=== PATIENT | female | born 1955 | race African-American/Black ===

== ENCOUNTER 2017-02-23 11:21 | Day surgery (SDC) | payer MEDICARE, MEDICAID ==
[2017-02-20 17:21] VITALS: BMI 49.8
[2017-02-23] MEDS ORDERED: Propofol 200 MG/20 ML VIAL ONE (13:36)
[2017-02-23] MEDS ORDERED: Glycopyrrolate 0.2 MG/ML 5 ML SYRINGE ONE (13:36)
--- NOTE | 2017-02-23 17:54 | OP ---
PREPROCEDURE DIAGNOSES: 1. Morbid obesity. 2. Mild anemia, likely secondary to sickle cell trait. 3. Prior history of polyp. 4. Atrial fibrillation. 5. Chronic anticoagulation with Eliquis. POSTPROCEDURE DIAGNOSES: 1. Normal esophagogastroduodenoscopy. 2. Five polyps scattered throughout the colon from the rectum to the right colon up to 5 mm in size, removed by snare polypectomy and submitted to Pathology. 3. The cecum could be seen, but the scope could not be advanced into the cecal pole secondary to the patient's size and difficulty with respiratory status, we could not get on to her back. RECOMMENDATIONS: 1. Await histopathology. 2. Repeat colonoscopy in one year secondary to intubate the cecum. 3. Follow up in the office in 2-3 weeks. ANESTHESIA: TIVA. PROCEDURE IN DETAIL: After the patient was informed of the risks, benefits, possible complications o f endoscopy including perforation, bleeding, reactions to medication and aspiration, informed consent was obtained. The patient was brought to the endoscopy suite where she was sedated in gradual fashi on. A bite block was placed in incisural orifice. The endoscope was advanced through the esophagus, stomach and second and third portion of the duodenum and slowly removed. The esophagus, stomach, an d duodenum were all normal. Forward and retroflexed views were normal. There were no bleeding sites identified. The patient was turned in the room. A rectal examination was performed. The endoscope was advanced to the right colon, identified by the ileocecal valve and appendiceal orifice could not be visualized . The scope cannot advance fully into the cecum. Multiple maneuvers were attempted including pressu re from 2 different tacks were helping them in case. I have tried to get on to her back, but respira tory status will not permit it. Ultimately after about an hour of attempting to intubate the cecum a nd IV status as well as the decision was made to terminate the procedure, it was thought to be more r isk to her than benefit at that time. No other polyps were seen. The scope was removed slowly with good visualization of the mucosa. Retroflexed views were normal. The patient tolerated the procedur e well with no complications.
== END 2017-02-23 15:11 | disposition home or self-care (01) ==
LOC: SDC 11:21
PROVIDERS: ATTEND Internal Medicine Gastroenterology
PROC: 0DBF8ZX Excision of Right Large Intestine, Via Natural or Artificial Opening Endoscopic, Diagnostic (ICD-10-PCS; principal; 2017-02-23)
PROC: 0DBP8ZX Excision of Rectum, Via Natural or Artificial Opening Endoscopic, Diagnostic (ICD-10-PCS; 2017-02-23)
PROC: 0DJ08ZZ Inspection of Upper Intestinal Tract, Via Natural or Artificial Opening Endoscopic (ICD-10-PCS; 2017-02-23)
DX: Z12.11 Encounter for screening for malignant neoplasm of colon (principal); K21.9 Gastro-esophageal reflux disease without esophagitis; D12.6 Benign neoplasm of colon, unspecified; E66.01 Morbid (severe) obesity due to excess calories; I48.91 Unspecified atrial fibrillation; K59.00 Constipation, unspecified; D50.9 Iron deficiency anemia, unspecified; E11.9 Type 2 diabetes mellitus without complications; I10 Essential (primary) hypertension; J45.909 Unspecified asthma, uncomplicated; F41.8 Other specified anxiety disorders; E78.00 Pure hypercholesterolemia, unspecified; E89.0 Postprocedural hypothyroidism; Z68.42 Body mass index [BMI] 45.0-49.9, adult; Z79.01 Long term (current) use of anticoagulants; Z79.4 Long term (current) use of insulin; Z79.2 Long term (current) use of antibiotics; Z79.899 Other long term (current) drug therapy; Z88.1 Allergy status to other antibiotic agents; Z96.652 Presence of left artificial knee joint; Z90.710 Acquired absence of both cervix and uterus; Z98.890 Other specified postprocedural states
CPT/HCPCS: 36416; 88305

== ENCOUNTER 2017-08-25 20:07 | Observation (INO) | payer MEDICARE, MEDICAID ==
[2017-08-25 20:43] LABS: #Eosinphils 0.2 thou/uL (0.0-0.7); #Lymphocytes 1.8 thou/uL (1.20-3.40); #Monocytes 0.5 thou/uL (0.11-0.59); #Neutrophils 3.6 thou/uL (1.40-6.50); %Basophils 0.8 % (0.0-1.0); %Eosinophils 2.6 % (0.0-10.0); %Lymphocytes 29.2 % (21.0-51.0); %Monocytes 7.8 % (0.0-10.0); %Neutrophils 59.6 % (42.0-75.0); Hemoglobin 11.2 g/dL (12.0-16.0); Mean Corpuscular HGB CONC 35.1 g/dL (32.0-36.0); Mean Corpuscular Hemoglobin 29.5 pg (27.0-31.0); Mean Platelet Volume 7.3 fL (7.4-10.4); Platelet Count 204 thou/uL (130-400); RBC Distribution Width 11.9 % (11.5-14.5)
[2017-08-25 21:06] LABS: ALT (SGPT) 34 U/L (8-55); AST (SGOT) 34 U/L (5-34); Albumin 4.1 g/dL (3.5-5.0); Alkaline Phosphatase 131 U/L (40-150); Anion Gap 16 mmol/L (10-20); BUN (Urea Nitrogen) 18 mg/dL (9.8-20.1); Bilirubin, Total 0.3 mg/dL (0.2-1.2); CK (CPK) 259 U/L (29-168); Calc. Creatinine Clearance 0 mL/min (70-130); Calcium 9.4 mg/dL (7.8-10.44); Carbon Dioxide 22 mmol/L (22-29); Chloride 104 mmol/L (98-107); Estimated GFR-MDRD 38; Globulin 3.1 g/dL (2.4-3.5); Glucose 288 mg/dL (70-105); Potassium 4.1 mmol/L (3.5-5.1); Protein, Total 7.2 g/dL (6.0-8.3); Sodium 138 mmol/L (136-145)
--- NOTE | 2017-08-25 21:09 | RAD ---
PORTABLE AP CHEST X-RAY 08/25/17 HISTORY: Chest pain. COMPARISON: 06/05/16. FINDINGS: The cardiac silhouette is magnified by projection and is at the upper limits of normal to borderline enlarged. The pulmonary vasculature is within normal limits. The lungs are clear. Degenerative change s are again seen in the spine. There has been no interval change compared to the prior exam. IMPRESSION: Stable chest without evidence of an acute cardiopulmonary process. POS: COLT
[2017-08-25 21:13] LABS: CKMB 1.7 ng/mL (0-6.6); Troponin I 0.014 ng/mL (< 0.028)
[2017-08-25] MEDS ORDERED: Acetaminophen 500 MG TAB ONE (21:26)
[2017-08-25 22:19] LABS: Bilirubin Negative (Negative); Blood, Urine Negative (Negative); Clarity CLEAR (Clear); Glucose, Urine (Dipstick) 500 mg/dL (Negative); Leukocyte Negative (Negative); Nitrite Negative (Negative); Protein, Urine (Dipstick) 100 mg/dL (Neg-Trace)
[2017-08-25 22:22] LABS: Bacteria/HPF None Seen HPF (None Seen); Hyaline Casts/LPF 0-3 HYALINE CAST LPF (0-3 Hyaline); Pathc Cast-AUWi Flag 0.58 (0-2.49); RBC/HPF 0-3 HPF (0-3); Squamous Epithelial 0-3 HPF (0-3); WBC/HPF 0-3 HPF (0-3)
[2017-08-25] MEDS ORDERED: Aspirin 325 MG TAB ONE (23:09)
[2017-08-26 00:52] LABS: Lactic Acid 2.4 mmol/L (0.5-2.2)
[2017-08-26 01:00] LABS: Troponin I 0.023 ng/mL (< 0.028)
[2017-08-26] MEDS ORDERED: Sodium Chloride 0.9% 1,000 ML IV SCH (01:17)
[2017-08-26 01:28] VITALS: BMI 51.2
[2017-08-26 02:49] LABS: Troponin I 0.027 ng/mL (< 0.028)
[2017-08-26] MEDS ORDERED: Loperamide HCl 2 MG CAP PO PRN (07:16)
[2017-08-26] MEDS ORDERED: Ondansetron HCl/PF 4 MG/2 ML Vial IVP PRN (07:16)
[2017-08-26] MEDS ORDERED: HYDROcodone/Acetaminophen 5/325 mg Tablet PO PRN (07:16)
[2017-08-26] MEDS ORDERED: Chloraseptic Spray 180 ml Bottle PO PRN (07:16)
[2017-08-26] MEDS ORDERED: traMADol HCl 50 MG TAB PO PRN (07:16)
[2017-08-26] MEDS ORDERED: Loratadine 10 MG TAB PO PRN (07:16)
[2017-08-26] MEDS ORDERED: Eucerin (Mineral Oil/Petrolatum,White) 30 gm Jar TOP PRN (07:16)
[2017-08-26] MEDS ORDERED: Dextrose 5% in Water 1,000 ML IV PRN (07:16)
[2017-08-26] MEDS ORDERED: Senokot 8.6 MG TAB PO PRN (07:16)
[2017-08-26] MEDS ORDERED: Dextrose 50% Abboject 50 ML SYRINGE SLOW IVP PRN (07:16)
[2017-08-26] MEDS ORDERED: Milk Of Magnesia 30 ML UDCUP PO PRN (07:16)
[2017-08-26] MEDS ORDERED: Artificial Tears 18 DROP/0.9 ML EA EYE PRN (07:16)
[2017-08-26] MEDS ORDERED: Ondansetron ODT 4 MG TAB PO PRN (07:16)
[2017-08-26] MEDS ORDERED: Mag-Al 1200 mg/1200 mg/30 ML UDCUP PO PRN (07:16)
[2017-08-26] MEDS ORDERED: Polyethylene Glycol 3350 17 GM Packet PO PRN (07:16)
[2017-08-26] MEDS ORDERED: Diabetic Tussin 200 MG/10 ML UDCUP PO PRN (07:16)
[2017-08-26] MEDS ORDERED: Acetaminophen 325 MG TAB PO PRN (07:16)
[2017-08-26] MEDS ORDERED: HumaLOG 300 UNITS/3 ML VIAL SC PRN (07:16)
[2017-08-26] MEDS ORDERED: Nitroglycerin 0.4 MG TAB (25 Tab Bottle) SL PRN (07:16)
[2017-08-26] MEDS ORDERED: Sodium Chloride 0.65% Nasal 44 ML BOT EA NARE PRN (07:16)
[2017-08-26] MEDS ORDERED: Zolpidem Tartrate 5 MG TAB PO PRN (07:16)
[2017-08-26] MEDS ORDERED: hydrALAZINE 20 MG/ML VIAL SLOW IVP PRN (07:16)
--- NOTE | 2017-08-26 08:35 | SS ---
PRIMARY CARE PHYSICIAN: Dr. Teja Shelton at [facility]. REASON FOR ADMISSION: Chest pain. HISTORY OF PRESENT ILLNESS: This is a 62-year-old -[place] female who has multiple medical p roblems including diabetes type 2, hypertension, dyslipidemia, hypothyroidism, dementia, glaucoma who came to emergency room for evaluation of chest pain. Patient reports that chest pain started yester day sometime, she was not sure about what time, but it was left-sided in location, associated with na usea. She denies any vomiting. She denies any relation of chest pain with food, respiration or acti vity. She describes pain, dull aching in nature, 5/10 in intensity. She denies any radiation of gaetano n. She denies any associated palpitations, shortness of breath, orthopnea, PND or leg swelling. She denies any calf tenderness. She denies any pleurisy. She denies any fever, chills, cough or recent upper respiratory infection. In the emergency room, the patient was evaluated and she was given aspirin 325 mg. She has baseline chronic kidney disease stage 3. She was given 1 liter IV fluids and Tylenol 1 gram. She had lactic acidosis, but she denies any fevers. She denies any UTI symptoms. She denies any constipation, diar val, melena or hematochezia. Her EKG was unremarkable. Her chest x-ray was unremarkable. In the e mergency room, she also had a CT of the abdomen and pelvis which was also unremarkable. She denies a ny right upper quadrant pain. She denies any suprapubic pain. Patient was admitted to telemetry floor for observation after midnight for rule out ACS. 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 PAST SURGICAL HISTORY: Hysterectomy, , thyroidectomy. PAST PSYCHIATRIC HISTORY: Anxiety and depression. SOCIAL HISTORY: Patient lives at [facility]. No history of tobacco, a lcohol or illicit drug abuse. FAMILY HISTORY: Positive for diabetes, hypertension among several family members. REVIEW OF SYSTEMS: The following complete review of systems was negative, unless otherwise mentioned in the HPI or below: Constitutional: Weight loss or gain, ability to conduct usual activities. Sk in: Rash, itching. Eyes: Double vision, pain. ENT/Mouth: Nose bleeding, neck stiffness, pain, te nderness. Cardiovascular: Palpitations, dyspnea on exertion, orthopnea. Respiratory: Shortness of breath, wheezing, cough, hemoptysis, fever or night sweats. Gastrointestinal: Poor appetite, abdom inal pain, heartburn, nausea, vomiting, constipation, or diarrhea. Genitourinary: Urgency, frequenc y, dysuria, nocturia. Musculoskeletal: Pain, swelling. Neurologic/Psychiatric: Anxiety, depressio n. Allergy/Immunologic: Skin rash, bleeding tendency. Please see my HPI for pertinent positive and negative. All other review of systems reviewed and negative except as mentioned in the HPI. ALLERGIES: KEFLEX. CURRENT HOME MEDICATIONS: Synthroid 175 mcg p.o. daily, Levemir 30 units subQ at bedtime, Humalog 20 units before meals, amlodipine 5 mg p.o. daily, Aricept 10 mg p.o. daily, Lipitor 40 mg p.o. at bedt lv, Eliquis 5 mg twice daily, MiraLax 17 grams p.o. daily, Xalatan eye drop at bedtime, glimepiride 4 mg p.o. b.i.d., Combigan ophthalmic drop b.i.d., omeprazole 20 mg p.o. daily, Cymbalta 60 mg p.o. d aily, Linzess 1 capsule daily, Seroquel 100 mg twice daily, losartan 100 mg p.o. daily. EMERGENCY ROOM COURSE: Patient is given aspirin, IV fluid and Tylenol. PHYSICAL EXAMINATION: VITAL SIGNS: On arrival, blood pressure 169/90, pulse 78, respiratory rate 18. temperature 98.6, saturation 96% on room air, weight 148 kilograms. GENERAL: Patient is currently alert, awake, arousable, follows command, in no obvious acute distress . She is presently demented. HEAD: Normocephalic, atraumatic. EYES: Pupils round, reactive to light. Extraocular muscles are intact. No nystagmus. ENT: Oropharynx within normal limits. Moist mucous membranes, no oral lesion, no pharyngeal erythem a, no exudate. NECK: Supple, no JVD, no thyromegaly, no carotid bruit. No jugular venous distention. LUNGS: Clear to auscultation without any rhonchi or rales. CARDIAC: S1, S2 regular. No murmur, no gallop, no rub. ABDOMEN: Soft, bowel sounds present, nontender, nondistended. No organomegaly, no mass, no epigastr ic tenderness, no right upper quadrant tenderness, no suprapubic tenderness, no peritoneal sign. BENIGN EXAMINATION: Lungs, clear to auscultation without any rhonchi or rales. Chest wall: Patient does have mild reproducible pain on the left side of the anterior chest nearby sternum. EXTREMITIES: Upper extremity, passive movement of all joints is normal. Lower extremity, passive mo vement of all joints is normal. No calf tenderness, no edema. Good distal pulsation. SKIN: No skin rash. HEMATOLOGIC: No lymphadenopathy. PSYCHIATRIC: Normal affect. NEUROLOGIC: Grossly nonfocal examination. She is moving all 4 limbs. Plantar bilateral flexor. SIGNIFICANT LABORATORY DATA: EKG showing normal sinus rhythm without any acute ischemic changes. Ch est x-ray based on my review, no acute cardiopulmonary process. CT of the abdomen and pelvis showing low attenuation in the left lobe of liver, otherwise unremarkable. CBC: WBC 6.0, hemoglobin 11.2, platelets 204. BMP: Sodium 138, potassium 4.1, chloride 104, carbon dioxide 22, anion gap 16, BUN 1 8, creatinine 1.67, glucose 288. Lactic acid 2.7, calcium 9.4. LFT: AST 34, ALT 34, alkaline phosp hatase is 131, albumin 4.1. Cardiac enzymes negative x2. BNP 10.5. Urinalysis normal. ASSESSMENT AND PLAN: 1. Chest pain. Patient's chest pain description is atypical. I am suspecting musculoskeletal pain given reproducibility, but she has several risk factors for coronary artery disease and she has mild to moderate pretest probability of coronary artery disease. Her EKG is normal. Her chest x-ray is n ormal. Cardiac enzymes are also negative. She never had a cardiac workup in the past. At this poin t, patient will need further evaluation with pharmacological stress test. If that is negative, then we will consider [facility] her [facility] later on today. We will check lipid profile fo r risk stratification. We will keep her n.p.o. for stress test. 2. Hypertension. Continue amlodipine 5 mg p.o. daily, losartan 100 mg p.o. daily. 3. Chronic anticoagulation. Continue Eliquis 5 mg p.o. b.i.d. for paroxysmal atrial fibrillation. Currently, she is in sinus rhythm. 4. Diabetes type 2. Continue patient's home dose of Levemir insulin subQ b.i.d., glimepiride 4 mg p .o. b.i.d. and Humalog insulin as per sliding scale. We will hold insulin therapy if patient is n.p. o. for stress test for now. 5. Hypothyroidism. We will continue Synthroid 175 mcg p.o. daily. 6. Glaucoma. We will continue Xalatan eyedrops, Combigan eyedrops as per home dosage. 7. Gastroesophageal reflux disease. Continue Protonix 40 mg p.o. daily. 8. Anxiety and depression. Continue Seroquel 100 mg p.o. b.i.d., Cymbalta 30 mg p.o. daily. 9. Gastroesophageal reflux disease. Continue Protonix 40 mg p.o. daily. 10. Morbid obesity. Diet education given, weight loss education given. Healthy lifestyle measures discussed with the patient. 11. Dyslipidemia. Continue Lipitor 40 mg p.o. at bedtime. 12. Senile dementia. Continue Aricept 20 mg p.o. at bedtime. 13. Chronic kidney disease stage 3. We will monitor renal function and avoid nephrotoxin agent. 14. Deep venous thrombosis prophylaxis not needed because the patient is already on chronic anticoag ulation therapy. 15. Gastrointestinal prophylaxis, Protonix 40 mg p.o. daily. CODE STATUS: Patient is FULL CODE. Patient does not have any surrogate decision maker. Disposition plan based on stress test result. DATE OF ADMISSION: 08/26/2017 DATE OF DISCHARGE: Expecting 08/26/2017 DISCHARGE DISPOSITION: [facility]. PRIMARY DISCHARGE DIAGNOSIS: Chest pain, ruled out acute coronary syndrome. SECONDARY DISCHARGE DIAGNOSES: Morbid obesity with BMI of 51, diabetes type 2, hypertension, dyslipi demia, gastroesophageal reflux disease, chronic kidney disease stage 3, glaucoma, osteoarthritis, anx iety, and depression, senile dementia, chronic anticoagulation, paroxysmal atrial fibrillation, physi leny deconditioning. PRIMARY PROCEDURES/OPERATIONS: None. RADIOLOGICAL INVESTIGATION: Chest x-ray normal. CT of the abdomen and pelvis unremarkable. SIGNIFICANT LABORATORY DATA: Please see my HPI above. DISCHARGE MEDICATIONS: Please see current home medications as per above. Patient will continue all her previous home medications. No new medication added. DISCHARGE PLAN: Patient will be discharged back to [facility]. ALLERGIES: KEFLEX. HOSPITAL COURSE: [facility] was [facility] from [facility] for [facility]. Her chest pain description is s uspected for musculoskeletal. We are trying to do stress test pharmacological for rule out ACS. If stress is negative, then the patient is expected to be discharged later on today. I am not sure whet her this stress test will be done in 2 days protocol or a single day, but if result is reported as ne gative, then we will consider discharging her back to [facility] later on today.
[2017-08-26 08:39] LABS: Cardiac Risk 3.1 (Less than 4.5)
[2017-08-26] MEDS: Timolol 0.5% Ophth Soln 5 ml Bottle EA EYE SCH ×2 (09:58→20:52)
[2017-08-26] MEDS: Brimonidine Tartrate 0.2% Ophth Soln 5 ml Bottle EA EYE SCH ×2 (09:59→20:52)
[2017-08-26] MEDS: Multivit, Therapeutic 1 TAB PO SCH (10:35)
[2017-08-26] MEDS: Apixaban 5 MG TAB PO SCH ×2 (12:05→20:54)
[2017-08-26] MEDS: Amlodipine 5 MG TAB PO SCH (12:05)
[2017-08-26] MEDS: Glimepiride 4 MG TAB PO SCH ×2 (12:06→20:54)
[2017-08-26] MEDS: DULoxetine 30 MG CAP PO SCH (12:06)
[2017-08-26] MEDS: Losartan 25 MG TAB PO SCH (12:09)
[2017-08-26] MEDS ORDERED: Regadenoson 0.4 MG/5 ML SYRINGE ONE (13:04)
[2017-08-26] MEDS: Insulin Glargine 75 UNITS in Pre-Filled Syringe 1 EACH SC SCH (15:49)
[2017-08-26] MEDS: HumaLOG 300 UNITS/3 ML VIAL SC PRN (15:50)
[2017-08-26] MEDS ORDERED: INSULIN DETEMIR SC SCH (16:30)
[2017-08-26] MEDS ORDERED: Latanoprost 0.005% Ophth Soln 2.5 ml Bottle EA EYE SCH (21:00)
[2017-08-26] MEDS ORDERED: Donepezil HCl 10 MG TAB PO SCH (21:00)
[2017-08-26] MEDS ORDERED: Atorvastatin Calcium 20 MG TAB PO SCH (21:00)
[2017-08-27 04:54] LABS: Hemoglobin 10.6 g/dL (12.0-16.0); Platelet Count 203 thou/uL (130-400)
[2017-08-27] MEDS: Insulin Glargine 75 UNITS in Pre-Filled Syringe 1 EACH SC SCH (05:32)
[2017-08-27] MEDS ORDERED: Levothyroxine 175 MCG TAB PO SCH (06:00)
[2017-08-27] MEDS: Brimonidine Tartrate 0.2% Ophth Soln 5 ml Bottle EA EYE SCH (08:08)
[2017-08-27] MEDS: Timolol 0.5% Ophth Soln 5 ml Bottle EA EYE SCH (08:09)
[2017-08-27] MEDS: Losartan 25 MG TAB PO SCH (08:10)
[2017-08-27] MEDS: Apixaban 5 MG TAB PO SCH (08:11)
[2017-08-27] MEDS: DULoxetine 30 MG CAP PO SCH (08:11)
[2017-08-27] MEDS: Multivit, Therapeutic 1 TAB PO SCH (08:11)
[2017-08-27] MEDS: Glimepiride 4 MG TAB PO SCH (08:11)
[2017-08-27] MEDS: Amlodipine 5 MG TAB PO SCH (08:11)
[2017-08-27] MEDS ORDERED: Prevnar 13-Val Conj/PF 0.5 ML SYRINGE IM ONE (09:00)
[2017-08-27] MEDS: HumaLOG 300 UNITS/3 ML VIAL SC PRN (10:49)
--- NOTE | 2017-08-27 11:26 | PDOC.PN ---
- Subjective Encounter Start Date: 08/27/17 Encounter Start Time: 07:00 -: old records requested/rev Patient seen and examined. No new complaints. No overnight events - Objective Resuscitation Status: Resuscitation Status FULL:Full Resuscitation MAR Reviewed: Yes Vital Signs & Weight: Vital Signs (12 hours) Temp Pulse Resp BP BP Pulse Ox 08/27/17 11:18 98.0 F 76 16 125/64 92 L 08/27/17 08:11 78 08/27/17 08:09 78 08/27/17 07:41 98.5 F 78 18 08/27/17 07:31 98.5 F 97 24 H 142/70 H 94 L 08/27/17 04:16 98.5 F 78 18 126/72 92 L Weight Weight 307 lb 5.19 oz I&O: 08/26/17 08/27/17 08/28/17 06:59 06:59 06:59 Intake Total 556 1210 Balance 556 1210 Result Diagrams: 08/27/17 04:08 08/27/17 04:08 Additional Labs: Accuchecks 08/27/17 08/27/17 08/26/17 10:47 05:32 20:54 POC Glucose 439 H 366 H 327 H 08/26/17 15:50 POC Glucose 405 H Radiology Reviewed by me: Yes (stress test normal) EKG Reviewed by me: Yes (nsr) Phys Exam - Physical Examination Constitutional: NAD HEENT: PERRLA, moist MMs, sclera anicteric Neck: no JVD, supple Respiratory: no wheezing, no rales, no rhonchi Cardiovascular: RRR, no significant murmur, no rub Gastrointestinal: soft, non-tender, no distention, positive bowel sounds Musculoskeletal: no edema, pulses present Neurological: non-focal, normal sensation, moves all 4 limbs Lymphatic: no nodes Psychiatric: normal affect Skin: no rash, normal turgor Dx/Plan (1) Chest pain Code(s): R07.9 - CHEST PAIN, UNSPECIFIED Status: Acute (2) Lactic acidosis Code(s): E87.2 - ACIDOSIS Status: Acute (3) Anxiety and depression Code(s): F41.9 - ANXIETY DISORDER, UNSPECIFIED; F32.9 - MAJOR DEPRESSIVE DISORDER, SINGLE EPISODE, UNSPECIFIED Status: Chronic (4) CKD (chronic kidney disease) stage 3, GFR 30-59 ml/min Code(s): N18.3 - CHRONIC KIDNEY DISEASE, STAGE 3 (MODERATE) Status: Chronic (5) Chronic anticoagulation Code(s): Z79.01 - 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 ANTICOAGULANTS Status: Chronic (6) Diabetes type 2, controlled Code(s): E11.9 - TYPE 2 DIABETES MELLITUS WITHOUT COMPLICATIONS Status: Chronic (7) Dyslipidemia Code(s): E78.5 - HYPERLIPIDEMIA, UNSPECIFIED Status: Chronic (8) GERD (gastroesophageal reflux disease) Code(s): K21.9 - GASTRO-ESOPHAGEAL REFLUX DISEASE WITHOUT ESOPHAGITIS Status: Chronic (9) Glaucoma Code(s): H40.9 - UNSPECIFIED GLAUCOMA Status: Chronic (10) Hypertension Code(s): I10 - ESSENTIAL (PRIMARY) HYPERTENSION Status: Chronic (11) Morbid obesity with BMI of 50.0-59.9, adult Code(s): E66.01 - MORBID (SEVERE) OBESITY DUE TO EXCESS CALORIES; Z68.43 - BODY MASS INDEX (BMI) 50-59.9 , ADULT Status: Chronic - Plan cont current plan of care * medication reviewed as below * symptomatic treatment * stable for discharge * discharge medication reconciliation done * discharge instruction given * stress test negative * paper work done for discharge. Review of Systems - Review of Systems Other: not reliable due to her level of cognitive status - Medications/Allergies Allergies/Adverse Reactions: Allergies Allergy/AdvReac Type Severity Reaction Status Date / Time cephalexin monohydrate Allergy Verified 02/20/17 17:07 [From [facility]] Medications: Current Medications Acetaminophen (Tylenol) 650 mg PO Q4H PRN PRN Reason: Headache/Fever or Pain Last Admin: 08/26/17 08:26 Dose: 650 mg Hydrocodone Bitart/Acetaminophen ([place] 5/325) 1 tab PO Q4H PRN PRN Reason: Moderate Pain (4-6) Last Admin: 08/26/17 16:08 Dose: 1 tab Al Hydroxide/Mg Hydroxide (Maalox) 30 ml PO Q6H PRN PRN Reason: Heartburn or Indigestion Amlodipine Besylate (Norvasc) 5 mg PO DAILY [facility] Last Admin: 08/27/17 08:11 Dose: 5 mg Apixaban (Eliquis) 5 mg PO BID [facility] Last Admin: 08/27/17 08:11 Dose: 5 mg Artificial Tears (Tears Naturale) 0 drop EA EYE PRN PRN PRN Reason: Dry Eyes Atorvastatin Calcium (Lipitor) 40 mg PO [facility] Last Admin: 08/26/17 20:54 Dose: 40 mg Brimonidine Tartrate (Alphagan 0.2% Ophth Soln) 1 drop EA EYE BID [facility] Last Admin: 08/27/17 08:08 Dose: 1 drop Dextrose/Water (Dextrose 50%) 25 gm SLOW IVP PRN PRN PRN Reason: Hypoglycemia Donepezil HCl (Aricept) 20 mg PO [facility] Last Admin: 08/26/17 20:54 Dose: 20 mg Duloxetine HCl (Cymbalta) 60 mg PO DAILY [facility] Last Admin: 08/27/17 08:11 Dose: 60 mg Glimepiride (Amaryl) 4 mg PO BID [facility] Last Admin: 08/27/17 08:11 Dose: 4 mg Glucagon (Glucagon) 1 mg IM PRN PRN PRN Reason: Hypoglycemia Guaifenesin (Robitussin Sf) 200 mg PO Q4H PRN PRN Reason: Cough Hydralazine HCl (Apresoline) 10 mg SLOW IVP Q4H PRN PRN Reason: Systolic BP > 180 Dextrose/Water (D5w) 1,000 mls @ 0 mls/hr IV .Q0M PRN; As Directed PRN Reason: Hypoglycemia Insulin Glargine 75 units/ (Miscellaneous Medication) 0.75 mls @ 0 mls/hr SC 0630,1630 [facility] PRN Reason: As Directed Last Admin: 08/27/17 05:32 Dose: 0.75 mls Insulin Human Lispro (Humalog) 0 units SC .MODERATE SLIDING SC PRN PRN Reason: Moderate Correctional Scale Last Admin: 08/27/17 10:49 Dose: 10 unit Insulin Human Lispro (Humalog) 0 units SC .BEDTIME SLIDING SC PRN PRN Reason: Bedtime Correctional Scale Last Admin: 08/26/17 20:59 Dose: 4 unit Lactulose (Lactulose) 10 gm PO BID [facility] Last Admin: 08/27/17 08:07 Dose: 10 gm Latanoprost (Xalatan 0.005% Ophth Soln) 1 drop EA EYE [facility] Last Admin: 08/26/17 20:47 Dose: 1 drop Levothyroxine Sodium (Synthroid) 175 mcg PO 0600 [facility] Last Admin: 08/27/17 05:28 Dose: 175 mcg Loperamide HCl (Imodium) 2 mg PO PRN PRN PRN Reason: Diarrhea/Loose Stools Loratadine (Claritin) 10 mg PO DAILYPRN PRN PRN Reason: Sinus Symptoms Losartan Potassium (Cozaar) 100 mg PO DAILY [facility] Last Admin: 08/27/17 08:10 Dose: 100 mg Magnesium Hydroxide (Milk Of Magnesium) 30 ml PO DAILYPRN PRN PRN Reason: Constipation Mineral Oil/White Petrolatum (Eucerin Cream) 0 gm TOP BIDPRN PRN PRN Reason: Dry Skin Multivitamins (Theragran) 1 tab PO DAILY [facility] Last Admin: 08/27/17 08:11 Dose: 1 tab Nitroglycerin (Nitrostat) 0.4 mg SL Q5MIN PRN PRN Reason: Chest Pain Ondansetron HCl (Zofran Odt) 4 mg PO Q6H PRN PRN Reason: Nausea/Vomiting Last Admin: 08/26/17 09:58 Dose: 4 mg Ondansetron HCl (Zofran) 4 mg IVP Q6H PRN PRN Reason: Nausea/Vomiting Pantoprazole Sodium (Protonix) 40 mg PO DAILY [facility] Last Admin: 08/27/17 08:11 Dose: 40 mg Phenol (Chloraseptic [place] 180 Ml Bot) 0 ml PO PRN PRN PRN Reason: Sore Throat Polyethylene Glycol (Miralax) 17 gm PO DAILY PRN PRN Reason: Constipation Quetiapine Fumarate (Seroquel) 100 mg PO BID [facility] Last Admin: 08/27/17 08:10 Dose: 100 mg Senna (Senokot) 2 tab PO HSPRN PRN PRN Reason: Constipation Sodium Chloride ([place] Nasal [place] 0.65%) 0 ml EA NARE QIDPRN PRN PRN Reason: Nasal Congestion Timolol Maleate (Timoptic 0.5% Ophth Soln) 1 drop EA EYE BID [facility] Last Admin: 08/27/17 08:09 Dose: 1 drop Tramadol HCl (Ultram) 50 mg PO Q8HR PRN PRN Reason: Pain Last Admin: 08/26/17 09:57 Dose: 50 mg Zolpidem Tartrate (Ambien) 5 mg PO HSPRN PRN PRN Reason: Insomnia
--- NOTE | 2017-08-27 11:40 | DIS ---
DATE OF ADMISSION: 08/26/2017 DATE OF DISCHARGE: 08/27/2017 DISCHARGE DISPOSITION: [facility]. PRIMARY DISCHARGE DIAGNOSIS: Chest pain, ruled out acute coronary syndrome. SECONDARY DISCHARGE DIAGNOSES: Hypertension, chronic anticoagulation with Eliquis, diabetes type 2, hypothyroidism, glaucoma, gastroesophageal reflux disease, anxiety and depression, gastroesophageal r eflux disease, morbid obesity, dyslipidemia, senile dementia, chronic kidney disease stage 3. PRIMARY PROCEDURE/OPERATION: None. RADIOLOGICAL INVESTIGATION: Stress test was normal. A chest x-ray was normal. SIGNIFICANT LABORATORY DATA: Hemoglobin 10.6, creatinine 1.82, LDL 49. Urinalysis normal. DISCHARGE MEDICATIONS: The patient will continue all her previous medication including Tylenol 650 m g q.6 hours p.r.n., amlodipine 5 mg p.o. daily, Eliquis 5 mg p.o. b.i.d., Lipitor 40 mg p.o. at bedti me, Combigan ophthalmic drops each eye q.12 hourly, Aricept 10 mg p.o. at bedtime, Cymbalta 60 mg p.o . daily, Amaryl 4 mg p.o. b.i.d., Humalog 25 units subcu a.c., Levemir 75 units subcu b.i.d. Lispro as per sliding scale, lactulose 15 mL b.i.d., Xalatan eye drop at bedtime, Synthroid 175 mcg daily, C ozaar 100 mg daily, multivitamin 1 tablet p.o. daily, omeprazole 20 mg p.o. daily, MiraLax 17 grams p .o. daily, Seroquel 100 mg p.o. b.i.d., tramadol 50 mg q.8 hourly p.r.n. CONTRAINDICATIONS: None. CODE STATUS: FULL CODE. INPATIENT CONSULTANTS: None. ALLERGIES: KEFLEX. DISCHARGE PLAN: Post hospital, the patient is discharged back to skilled nursing. HOSPITAL COURSE: The patient was sent from skilled nursing for chest pain. Her chest pain description was most likely related with musculoskeletal etiology. Because of her several risk factors for coron roxana artery disease and she never had any workup for her heart, that is why we did a pharmacological s tress test to rule out underlying ischemia. Her pharmacological stress test was normal. The patient did not have any abnormality on telemetry floor. Her blood sugar was high because she did not get h er regular insulin as prescribed at skilled nursing. We are restarting back on her regular dose of insu raudel therapy. She was continued with her home medication while in hospital as well as upon discharge. The patient is seen and examined at bedside today. Please see my progress note from today for furt her detail. The patient is medically stable for discharge today.
--- NOTE | 2017-08-27 12:10 | NM ---
MYOCARDIAL PERFUSION EVALUATION: DATE: 08/27/17 INDICATION: History of chest pain, stroke, COPD, atrial fibrillation, hypertension, diabetes mellitus, and dyslip idemia. RADIOPHARMACEUTICAL: 27.1 mCi technetium-99m sestamibi IV was utilized with stress and 27.2 mCi technetium-99m sestamibi I V was utilized with rest. PHYSIOLOGIC DATA: The patient achieved 73% of maximal age-predicted heart rate utilizing the Lexiscan stress test morales col. Please see the stress test report for further details concerning physiologic data. FINDINGS: There is a prominent amount of activity underlying the left inferior heart border likely related to b ackground activity in the liver and colon. This is seen on both the rest and stress images and slight ly limits the imaged detail and analysis. However, no definite reversible myocardial perfusion defect is evident. There was normal wall motion and thickening. Estimated LVEF is 73%. IMPRESSION: 1. No definite scintigraphic evidence of reversible myocardial ischemia. 2. Mild background activity adjacent to the inferior wall of the left ventricle likely related to ba ckground uptake within the liver and portions of the colon. 3. Normal wall motion and thickening with an estimated LVEF of 73%. POS: [facility]
[2017-08-27] MEDS ORDERED: HumaLOG 300 UNITS/3 ML VIAL SC SCH (15:15)
[2017-08-27 16:33] VITALS: BP 123/75; TEMP 98.4
== END 2017-08-27 16:59 ==
LOC: ERS 20:07 → 2SW 08-26 01:08
PROVIDERS: ADMIT Hospitalist; ATTEND Hospitalist
DX: R07.9 Chest pain, unspecified (principal); E03.9 Hypothyroidism, unspecified; H40.9 Unspecified glaucoma; K21.9 Gastro-esophageal reflux disease without esophagitis; F41.8 Other specified anxiety disorders; E66.01 Morbid (severe) obesity due to excess calories; F03.90 Unspecified dementia, unspecified severity, without behavioral disturbance, psychotic disturbance, mood disturbance, and anxiety; E11.22 Type 2 diabetes mellitus with diabetic chronic kidney disease; I12.9 Hypertensive chronic kidney disease with stage 1 through stage 4 chronic kidney disease, or unspecified chronic kidney disease; N18.3 Chronic kidney disease, stage 3 (moderate); Z68.43 Body mass index [BMI] 50.0-59.9, adult; Z79.01 Long term (current) use of anticoagulants; Z79.4 Long term (current) use of insulin; Z79.899 Other long term (current) drug therapy; Z88.8 Allergy status to other drugs, medicaments and biological substances
CPT/HCPCS: 51701; 71045; 78452; 80053; 80061; 82550; 82553; 82565; 82962 ×2; 83605 ×2; 83880; 84484 ×3; 85014; 85018; 85025; 85049; 93005; 93017; 99285; A9500; G0378; 36415; 36416; 81003; 81015; 96360; 96361; A4353; J2785; Q0162

== ENCOUNTER 2018-06-23 20:50 | Emergency (ER) | payer MEDICARE, OTHER ==
--- NOTE | 2018-06-23 21:27 | RAD ---
2 views right hip: 06/23/2018 COMPARISON: None HISTORY: Pain FINDINGS: There is mild superior joint space narrowing and mild lateral osteophyte formation involvin g the right hip with no acute fracture or evidence of dislocation. IMPRESSION: No acute osseous abnormality.
[2018-06-23] MEDS ORDERED: Ketorolac Tromethamine 30 MG/ML VIAL ONE (21:35)
--- NOTE | 2018-06-23 22:14 | CT ---
CT of the pelvis: 06/23/2018 COMPARISON: None HISTORY: Pain TECHNIQUE: Axial CT imaging at 3.75 mm intervals through the pelvis with coronal and sagittal reforma tted imaging FINDINGS: The uterus appears surgically absent. Limited visualization of the abdominal contents appea rs unremarkable. There is mild fat stranding and skin thickening involving the inferior aspect of the pannus on the right, which may signify cellulitis. There is a prominent incompletely imaged ventr al hernia. There is prominent bilateral facet hypertrophy at L4-5 and L5-S1 with associated bilateral neural for aminal stenosis. There is mild degenerative change involving bilateral sacroiliac joints. There is no widening of the sacroiliac joints or the pubic symphysis. No evidence for fracture of the inferior pubic ramus or the superior pubic ramus noted on either side. No displaced fracture is seen involving the proximal f emur on either side. No evidence for hip dislocation. IMPRESSION: Chronic-appearing findings as detailed above. No acute fracture is noted. Follow-up MRI a dvised if symptoms persist.
== END 2018-06-24 00:21 ==
LOC: ERS 20:50
DX: L03.115 Cellulitis of right lower limb (principal); D64.9 Anemia, unspecified; F03.90 Unspecified dementia, unspecified severity, without behavioral disturbance, psychotic disturbance, mood disturbance, and anxiety; I48.91 Unspecified atrial fibrillation; J44.9 Chronic obstructive pulmonary disease, unspecified; M19.90 Unspecified osteoarthritis, unspecified site; F41.9 Anxiety disorder, unspecified; I12.9 Hypertensive chronic kidney disease with stage 1 through stage 4 chronic kidney disease, or unspecified chronic kidney disease; N18.9 Chronic kidney disease, unspecified; D63.1 Anemia in chronic kidney disease; Z79.4 Long term (current) use of insulin; Z79.1 Long term (current) use of non-steroidal anti-inflammatories (NSAID); Z79.899 Other long term (current) drug therapy
CPT/HCPCS: 72192; 96374; J1885

== ENCOUNTER 2018-10-10 21:20 | Inpatient (IN) | payer MEDICARE, MEDICAID ==
[2018-10-10 21:58] LABS: #Eosinphils 0.2 thou/uL (0.0-0.7); #Lymphocytes 2.1 thou/uL (1.20-3.40); #Monocytes 0.6 thou/uL (0.11-0.59); #Neutrophils 3.6 thou/uL (1.40-6.50); %Basophils 0.4 % (0.0-1.0); %Eosinophils 2.4 % (0.0-10.0); %Lymphocytes 32.4 % (21.0-51.0); %Monocytes 9.2 % (0.0-10.0); %Neutrophils 55.6 % (42.0-75.0); Hemoglobin 11.7 g/dL (12.0-16.0); Mean Corpuscular HGB CONC 33.5 g/dL (32.0-36.0); Mean Corpuscular Hemoglobin 28.6 pg (27.0-31.0); Mean Corpuscular Volume 85.2 fL (78.0-98.0); Mean Platelet Volume 8.2 fL (7.4-10.4); Platelet Count 205 thou/uL (130-400); RBC Distribution Width 12.1 % (11.5-14.5); Red Blood Cell (RBC) Count 4.08 mill/uL (4.20-5.40); White Blood Cell (WBC) Count 6.5 thou/uL (4.8-10.8)
[2018-10-10] MEDS ORDERED: Labetalol HCl 100 MG/20 ML VIAL ONE (22:09)
[2018-10-10] MEDS ORDERED: Nitroglycerin 2% Ointment 1 INCH/1 GM Packet ONE (22:09)
--- NOTE | 2018-10-10 22:13 | RAD ---
PORTABLE CHEST ONE VIEW: Date: 10-10-18 Time: 9:31 p.m. History: Chest pain FINDINGS: Comparison is made with exam of 12:32 p.m. from the same date. The heart size is enlarged. No lobar consolidation, pneumothoraces, zeyad pulmonary edema or large ef fusions are seen. There are degenerative changes of the spine. IMPRESSION: Stable exam. POS: [facility]
[2018-10-10 22:15] LABS: ALT (SGPT) 32 U/L (8-55); AST (SGOT) 22 U/L (5-34); Albumin 4.3 g/dL (3.4-4.8); Alkaline Phosphatase 172 U/L (40-150); Anion Gap 14 mmol/L (10-20); BUN (Urea Nitrogen) 14 mg/dL (9.8-20.1); Bilirubin, Total 0.3 mg/dL (0.2-1.2); Calc. Creatinine Clearance 0 mL/min (70-130); Calcium 9.8 mg/dL (7.8-10.44); Carbon Dioxide 27 mmol/L (23-31); Chloride 103 mmol/L (98-107); Estimated GFR-MDRD 46; Globulin 2.5 g/dL (2.4-3.5); Glucose 220 mg/dL (80-115); Lipase 16 U/L (8-78); Protein, Total 6.8 g/dL (6.0-8.3); Sodium 140 mmol/L (136-145)
--- NOTE | 2018-10-10 22:18 | PDOC.FPRHP ---
- History of Present Illness Chief Complaint: Chest pain History of Present Illness: 63yo female w/ pmhx of HTN, HLD, CKD, and CVA w/dementia. Pt was transferred from [place] [facility]. Report given was that pt who is resident of [facility] has had a cough for several days and starting at the end of last week started to develop chest pain with her cough. She was evaluated at [place] [facility] for this and was found to be hypertensive with an indeterminate troponin and CP that resolved with nitro. Pt's pcp office was contacted who requested pt be admitted for further workup so pt was transferred here. Upon exam pt is pleasantly demented and an extremely poor historian. She does recall having a cough and chest pain associated with these but is otherwise unable to recall any recent events. She is unable to recall any of her medical history, medications, or care management information. Only current symptom she expressed at this time is chest wall tenderness but due to mental status is unreliable. ED Course: EKG with non specific repolarization abnormalities, nitro paste, duoneb, labetalol, and catapress. Initially indeterminate levels trops that eventually downtrended. - Allergies/Adverse Reactions Allergies Allergy/AdvReac Type Severity Reaction Status Date / Time cephalexin monohydrate Allergy Verified 02/20/17 17:07 [From [employer]] - Home Medications Medication Instructions Recorded Confirmed Type Acetaminophen 650 mg PO Q6HR PRN 07/21/15 10/11/18 History Amlodipine Besylate [amLODIPine 5 mg PO DAILY 07/21/15 10/11/18 History Besylate] Atorvastatin Calcium [Lipitor] 40 mg PO HS 07/21/15 10/11/18 History Brimonidine Tartrate/Timolol 1 drop EA EYE Q12H 07/21/15 10/11/18 History [Combigan 0.2%-0.5% Eye Drops] Donepezil HCl [Aricept] 20 mg PO HS 07/21/15 10/10/18 History Glimepiride [Amaryl] 4 mg PO BID 07/21/15 10/10/18 History Insulin Detemir 100 UNITS/ML 125 units SC 0630,1630 07/21/15 10/10/18 History [Levemir] Insulin Lispro [Humalog Kwikpen 35 unit SQ BID-WM 07/21/15 10/10/18 History U-100] Lactulose 15 ml PO BID 07/21/15 10/10/18 History Levothyroxine [Synthroid] 200 mcg PO DAILY 07/21/15 10/10/18 History Losartan Potassium [Cozaar] 100 mg PO DAILY 07/21/15 10/10/18 History Multivitamin [Multivitamins] 1 tablet PO DAILY 07/21/15 10/10/18 History Omeprazole Magnesium [Prilosec OTC] 20 mg PO DAILY 07/21/15 10/10/18 History Apixaban [Eliquis] 5 mg PO BID #0 tab 07/22/15 10/11/18 Rx DULoxetine [Cymbalta] 90 mg PO HS 02/20/17 10/11/18 History Polyethylene Glycol 3350 [Miralax] 17 gm PO DAILY PRN 02/20/17 10/10/18 History QUEtiapine Fumarate [SEROquel] 250 mg PO HS 02/20/17 10/10/18 History traMADol HCl [Tramadol HCl] 50 mg PO Q8HR PRN 02/20/17 10/10/18 History Acetaminophen W/ Codeine 1 tablet PO Q12HR PRN 10/11/18 10/11/18 History [Acetaminophen/Codeine #3] Aluminum & Magnesium Hydroxide 30 ml PO Q6HR PRN 10/11/18 10/11/18 History [Maalox] Bimatoprost [Lumigan] 1 drop EA EYE HS 10/11/18 10/11/18 History Linaclotide [Linzess] 290 mcg PO DAILY-AC 10/11/18 10/11/18 History - History PMHx: DM II, CKD, hypothyroid, thyrotoxicosis, anemia, HTN, HLD, insomnia, dementia, a-fib, CVA, TIA, open-angle glaucoma, neuropathy, COPD, GERD, OA rt knee PSHx: section, hysterectomy, thyroidectomy FHx: Unable to obtain Social: Lives in [facility], no known alcohol, drug, or tobacco use - Review of Systems ROS unobtainable: due to mental status - Vital signs BP: 186/85, Pulse: 69, Resp: 21, Temp: 98.9 ORAL, Pain: 0, O2 sat: 93 on RA - Physical Exam -Constitutional: Morbidly obese, awake and alert - oriented to person and somewhat to place, otherwise disoriented. HEENT: normocephalic and atraumatic, EOMI Neck: supple, FROM -Chest: Very tender to sternal and parasternal palpation -Heart: Difficult to hear heart sounds 2/2 body habitus Lungs: no respiratory distress -Lungs: Auscultation difficult 2/2 body habitus Abdomen: soft, non-tender, bowel sounds present Musculoskeletal: normal structure, normal tone, ROM grossly normal Neurological: no focal deficit -Neurological: Oriented to person, thinks she is in [place], does not know where she lives Skin: no rash/lesions -Skin: LE have dry scaling skin Heme/Lymphatic: no unusual bruising or bleeding -Psychiatric: Difficult to assess 2/2 to mental status FMR H&P: Results - Labs Result Diagrams: 10/11/18 06:38 10/10/18 21:47 Lab results: WBC 6.5 thou/uL (4.8-10.8) 10/10/18 21:47 Hgb 11.7 g/dL (12.0-16.0) L 10/10/18 21:47 Hct 34.8 % (36.0-47.0) L 10/10/18 21:47 MCV 85.2 fL (78.0-98.0) 10/10/18 21:47 Plt Count 205 thou/uL (130-400) 10/10/18 21:47 Neutrophils % 55.6 % (42.0-75.0) 10/10/18 21:47 Sodium 140 mmol/L (136-145) 10/10/18 21:47 Potassium 4.0 mmol/L (3.5-5.1) 10/10/18 21:47 Chloride 103 mmol/L (98-107) 10/10/18 21:47 Carbon Dioxide 27 mmol/L (23-31) 10/10/18 21:47 BUN 14 mg/dL (9.8-20.1) 10/10/18 21:47 Creatinine 1.42 mg/dL (0.6-1.1) H 10/10/18 21:47 Glucose 220 mg/dL (80-115) H 10/10/18 21:47 Calcium 9.8 mg/dL (7.8-10.44) 10/10/18 21:47 Total Bilirubin 0.3 mg/dL (0.2-1.2) 10/10/18 21:47 AST 22 U/L (5-34) 10/10/18 21:47 ALT 32 U/L (8-55) 10/10/18 21:47 Alkaline Phosphatase 172 U/L (40-150) H 10/10/18 21:47 Serum Total Protein 6.8 g/dL (6.0-8.3) 10/10/18 21:47 Albumin 4.3 g/dL (3.4-4.8) 10/10/18 21:47 Lipase 16 U/L (8-78) 10/10/18 21:47 - EKG Interpretation EKG: NSR, biphasic p waves, no ST or T wave changes - Radiology Interpretation Chest x-ray Status: report reviewed by me (Cardiomegaly. Stable from prev exam) FMR H&P: A/P - Problem List (1) Chest pain Current Visit: No Status: Acute Code(s): R07.9 - CHEST PAIN, UNSPECIFIED (2) Diabetes mellitus type 2, uncontrolled Current Visit: No Status: Acute Code(s): E11.65 - TYPE 2 DIABETES MELLITUS WITH HYPERGLYCEMIA (3) CKD (chronic kidney disease) stage 3, GFR 30-59 ml/min Current Visit: No Status: Chronic Code(s): N18.3 - CHRONIC KIDNEY DISEASE, STAGE 3 (MODERATE) (4) Chronic anticoagulation Current Visit: No Status: Chronic Code(s): Z79.01 - CAREER COUNSELOR (CURRENT) USE OF ANTICOAGULANTS (5) Dyslipidemia Current Visit: No Status: Chronic Code(s): E78.5 - HYPERLIPIDEMIA, UNSPECIFIED (6) Hypertension Current Visit: No Status: Chronic Code(s): I10 - ESSENTIAL (PRIMARY) HYPERTENSION (7) Morbid obesity with BMI of 50.0-59.9, adult Current Visit: No Status: Chronic Code(s): E66.01 - MORBID (SEVERE) OBESITY DUE TO EXCESS CALORIES; Z68.43 - BODY MASS INDEX (BMI) 50-59.9, ADULT - Plan A/Typical Chest Pain R/O likely 2/2 MSK pain/Stable angina/ACS Stress test last year without acute findings - ED: nitro; EKG: Above : CXR: Above - Heart score: 4 even w/o reliable hx from pt - Initial troponin: 0.029 > 0.048 > 0.021 - Repeat EKG if CP returns, prn nitro - TTE and pharm cardiolite stress test ordered - NPO at midnight/for procedure Hypertension uncontrolled - Resume home Rx: amlodipine, losartan - PRN hydralazine for hypertensive urgency, SBP > 180 Diabetes Mellitus II / insulin dependent - Resume home Rx: Levemir, humalog - after pt resumes diet - Aggressive Sliding Scale while NPO - Hypoglycemic protocol Hyperlipidemia - Resume home Rx: atorvastatin Atrial Fibrillation - Continue eliquis Hypothyroid - Cont levothyroxine Admit: Tele obs IVF: LR @ 100 VTE: SCD and Eliquis Diet: NPO Code Status: Full FMR H&P: Upper Level - Pertinent history 63 y/o F PMHx HTN, DM2, CKD3, a-fib, COPD, alzheimers dementia presents to the ED from [facility] for chest pain. The patient is a resident at [facility] and is a very poor historian 2/2 dementia and hearing loss. She was unable to characterize the chest pain, but she just kept holding her chest in the substernal region saying it hurt. She did not answer most of my questions and it was difficult to assess how much of that was due to hearing loss vs dementia. There was no family in the room to assist with understanding her baseline. - Pertinent findings Vitals: BP: 186/85, Pulse: 69, Resp: 21, Temp: 98.9 ORAL, Pain: 0, O2 sat: 93 on RA PE: Gen - alert, awake, NAD HEENT - MMM, EOMI CV - RRR, no murmurs, mild tenderness to chest palpation Resp - CTAB, no wheezes Abd - protruberant, soft, NTTP Ext - no cyanosis or edema Labs: Trop 0.029, 0.048, 0.021. CXR - stable, no acute process EKG - Sinus rhythm, biphasic p waves - Plan Date/Time: 10/10/18 [id number] ILeticia MD, PGY-3, have evaluated this patient and agree with findings/ plan as outlined by internet salesperson resident. Pertinent changes/additions are listed here. 1. Chest Pain concerning for ACS Unable to obtain a good history from patient. Heart score 4 with no points given for history. Pt s/p Nitrobid, catapress, and labetalol. Trop initially indeterminate, but has now downtrended. -Will obs on tele -Stress in AM -Echo -FLP to risk stratify -Repeat EKG for any new or worsening chest pain -Aspirin, atorvastatin 2. Hypertensive Urgency Pt with initial BPs in the 210s/70s s/p clonidine and labetalol. BP now improved to 160s-190s systolic. -Will monitor closely -Restart home BP medications, losartan, amlodipine 3. DM2 -Will restart home meds once no longer NPO -Accuchecks -Aggressive SSI 4. Hypothyroidism -Continue home synthroid 5. CKD3 Appears around baseline -Avoid nephrotoxic agents 6. Alzheimers dementia Aware. senior living unable to provide information about pt baseline as it was the "night nurse who doesn't talk to her much" Have attempted to contact family, but they have not returned call -Will monitor closely -Contact fdc and family again in the AM -Continue donepezil 7. atrial fibrillation In NSR on admission -Continue eliquis 8. COPD -Duonebs prn 9. GERD -Continue omeprazole, could potentially be a chest pain contributor. Code status: Will make full at this time as awaiting MPOA to return call Dispo: Obs on tele, length of stay likely less than 48 hours Addendum - Attending - Attending Attestation Date/Time: 10/11/18 0329 I personally evaluated the patient and discussed the management with Dr. Lee/ Nelsy. I agree with the History, Examination, Assessment and Plan documented above with any addition or exceptions noted below. Patient here for chest pain in setting of being a known vasculopath. Her enzymes are negative. Reports more constant pain for 1 day. Will undergo stress testing today and further mgmt per that result. Continue chronic meds for chronic conditions.
[2018-10-10 23:19] LABS: Bacteria/HPF None Seen HPF (None Seen); Bilirubin Negative (Negative); Blood, Urine Trace (Negative); Clarity Clear (Clear); Glucose, Urine (Dipstick) 70 mg/dL (Negative); Leukocyte Negative Leu/uL (Negative); Nitrite Negative (Negative); Protein, Urine (Dipstick) 200 mg/dL (Neg-Trace); RBC/HPF 0-3 HPF (0-3); Squamous Epithelial 0-3 HPF (0-3); Urobilinogen Normal mg/dL (Less than 2); WBC/HPF 0-3 HPF (0-3)
[2018-10-11] MEDS ORDERED: Dextrose 50% Abboject 50 ML SYRINGE SLOW IVP PRN (00:13)
[2018-10-11] MEDS ORDERED: Dextrose 5% in Water 1,000 ML IV PRN (00:13)
[2018-10-11] MEDS ORDERED: traMADol HCl 50 MG TAB PO PRN (00:13)
[2018-10-11] MEDS ORDERED: Acetaminophen 325 MG TAB PO PRN (00:13)
[2018-10-11] MEDS ORDERED: Polyethylene Glycol 3350 17 GM Packet PO PRN (00:13)
[2018-10-11] MEDS ORDERED: HumaLOG 300 UNITS/3 ML VIAL SC PRN (00:13)
[2018-10-11] MEDS: Lactated Ringer's 1,000 ML IV SCH ×2 (01:13→09:07)
[2018-10-11] MEDS: Acetaminophen/Codeine 30-300mg Tablet PO PRN (01:24)
[2018-10-11] MEDS: Levothyroxine Sodium 100 MCG TAB PO SCH (05:53)
[2018-10-11] MEDS: INSULIN GLARGINE SC SCH ×2 (05:54→17:25)
[2018-10-11] MEDS: PRE FILLED SC SCH ×2 (05:54→17:25)
[2018-10-11] MEDS ORDERED: INSULIN DETEMIR SC SCH ×2 (06:30→16:30)
[2018-10-11 07:13] LABS: #Eosinphils 0.1 thou/uL (0.0-0.7); #Lymphocytes 1.8 thou/uL (1.20-3.40); #Monocytes 0.6 thou/uL (0.11-0.59); #Neutrophils 3.5 thou/uL (1.40-6.50); %Basophils 0.1 % (0.0-1.0); %Eosinophils 1.5 % (0.0-10.0); %Lymphocytes 30.3 % (21.0-51.0); %Monocytes 9.7 % (0.0-10.0); %Neutrophils 58.5 % (42.0-75.0); Hemoglobin 11.3 g/dL (12.0-16.0); Mean Corpuscular Hemoglobin 28.5 pg (27.0-31.0); Mean Corpuscular Volume 86.4 fL (78.0-98.0); Mean Platelet Volume 8.4 fL (7.4-10.4); Platelet Count 208 thou/uL (130-400); RBC Distribution Width 12.2 % (11.5-14.5); Red Blood Cell (RBC) Count 3.95 mill/uL (4.20-5.40); White Blood Cell (WBC) Count 5.9 thou/uL (4.8-10.8)
[2018-10-11] MEDS ORDERED: Regadenoson 0.4 MG/5 ML SYRINGE ONE (07:21)
[2018-10-11 07:40] LABS: Anion Gap 12 mmol/L (10-20); BUN (Urea Nitrogen) 14 mg/dL (9.8-20.1); Calc. Creatinine Clearance 95 mL/min (70-130); Calcium 9.6 mg/dL (7.8-10.44); Carbon Dioxide 27 mmol/L (23-31); Cardiac Risk 4.1 (Less than 4.5); Chloride 103 mmol/L (98-107); Cholesterol 159 mg/dl (< 200 Desired); Estimated GFR-MDRD 45; Glucose 241 mg/dL (80-115); HDL Cholesterol 39 mg/dL (>60 Neg Risk); LDL Cholesterol, Calculated 69 mg/dL; Potassium 4.1 mmol/L (3.5-5.1); Sodium 138 mmol/L (136-145); Triglycerides 253 mg/dL (Less than 150)
[2018-10-11 08:14] LABS: Troponin I 0.037 ng/mL (< 0.028)
[2018-10-11] MEDS ORDERED: Aspirin 325 mg Enteric Coated Tablet PO SCH (09:00)
[2018-10-11] MEDS ORDERED: Levothyroxine 175 MCG TAB PO SCH (09:00)
[2018-10-11] MEDS: Aspirin 81 mg Enteric Coated Tablet PO SCH (09:04)
[2018-10-11] MEDS: Multivitamin W/ Minerals 1 TAB PO SCH (09:04)
[2018-10-11] MEDS: Apixaban 5 MG TAB PO SCH ×2 (09:05→21:21)
[2018-10-11] MEDS: HumaLOG 300 UNITS/3 ML VIAL SC SCH ×2 (09:05→17:26)
[2018-10-11] MEDS: Glimepiride 4 MG TAB PO SCH ×2 (09:05→21:22)
[2018-10-11] MEDS: Nitroglycerin 0.4 MG TAB (25 Tab Bottle) PO PRN ×2 (09:32→09:37)
[2018-10-11] MEDS: Amlodipine 5 MG TAB PO SCH (14:17)
[2018-10-11] MEDS: Losartan 25 MG TAB PO SCH (14:17)
[2018-10-11] MEDS: Timolol 0.5% Ophth Soln 5 ml Bottle EA EYE SCH ×2 (14:18→21:23)
[2018-10-11] MEDS: Brimonidine Tartrate 0.2% Ophth Soln 5 ml Bottle EA EYE SCH ×2 (14:18→21:23)
[2018-10-11] MEDS: HumaLOG 300 UNITS/3 ML VIAL SC PRN (14:25)
[2018-10-11 16:07] LABS: Platelet Count 227 thou/uL (130-400)
[2018-10-11] MEDS: Donepezil HCl 10 MG TAB PO SCH (21:21)
[2018-10-11] MEDS: Atorvastatin Calcium 20 MG TAB PO SCH (21:21)
[2018-10-11] MEDS: DULoxetine 30 MG CAP PO SCH (21:22)
[2018-10-11] MEDS: Latanoprost 0.005% Ophth Soln 2.5 ml Bottle EA EYE SCH (21:23)
[2018-10-12] MEDS: Levothyroxine Sodium 100 MCG TAB PO SCH (05:16)
[2018-10-12] MEDS: HumaLOG 300 UNITS/3 ML VIAL SC PRN ×2 (05:17→11:58)
--- NOTE | 2018-10-12 06:41 | PDOC.FM ---
- Subjective Subjective: pt sleeping comfortably in bed, denies CP and SOB - Objective Vital Signs & Weight: Vital Signs (12 hours) Temp Pulse Resp BP BP Pulse Ox 10/12/18 04:09 94 L 10/12/18 02:59 98.4 F 80 18 128/58 L 92 L 10/11/18 21:23 87 165/79 H 10/11/18 20:00 98.1 F 87 18 165/79 H 95 Weight Weight 145.15 kg I&O: 10/10/18 10/11/18 10/12/18 06:59 06:59 06:59 Intake Total 593 1400 Output Total 350 1500 Balance 243 -100 Result Diagrams: 10/11/18 16:00 10/11/18 16:00 Phys Exam - Physical Examination Constitutional: NAD HEENT: moist MMs Neck: full ROM Gastrointestinal: no distention Neurological: moves all 4 limbs Psychiatric: normal affect Skin: no rash Dx/Plan (1) Chest pain Code(s): R07.9 - CHEST PAIN, UNSPECIFIED Status: Acute (2) Diabetes mellitus type 2, uncontrolled Code(s): E11.65 - TYPE 2 DIABETES MELLITUS WITH HYPERGLYCEMIA Status: Acute (3) CKD (chronic kidney disease) stage 3, GFR 30-59 ml/min Code(s): N18.3 - CHRONIC KIDNEY DISEASE, STAGE 3 (MODERATE) Status: Chronic (4) Chronic anticoagulation Code(s): Z79.01 - USP (CURRENT) USE OF ANTICOAGULANTS Status: Chronic (5) Dyslipidemia Code(s): E78.5 - HYPERLIPIDEMIA, UNSPECIFIED Status: Chronic (6) GERD (gastroesophageal reflux disease) Code(s): K21.9 - GASTRO-ESOPHAGEAL REFLUX DISEASE WITHOUT ESOPHAGITIS Status: Chronic (7) Hypertension Code(s): I10 - ESSENTIAL (PRIMARY) HYPERTENSION Status: Chronic - Plan Plan: Atypical chest pain - Heart score 4, Trop initially indeterminate, downtrended. -2nd part stress today, Echo wnl -Repeat EKG for any new or worsening chest pain -Aspirin, atorvastatin Hypertensive Urgency - initial BPs in the 210s/70s s/p clonidine and labetalol. BP now improved to 160s-190s systolic. -continue home BP medications, losartan, amlodipine DM2 -restart home meds -Accuchecks -Aggressive SSI Hypothyroidism -Continue home synthroid CKD3 Appears around baseline -Avoid nephrotoxic agents Alzheimers dementia -Will monitor closely -Continue donepezil atrial fibrillation -Continue eliquis COPD -Duonebs prn GERD -Continue omeprazole, could potentially be a chest pain contributor. Code status:Full Dispo:await results of 2 part stress today, then likely DC Addendum - Attending - Attending Attestation Date/Time: 10/12/18 9730 I personally evaluated the patient and discussed the management with Dr. Hoyt. I agree with the History, Examination, Assessment and Plan documented above with any addition or exceptions noted below. Patient resting comfortably this morning. Awaiting stress testing result. No EKG or telemetry changes to suggest ACS. Needs improved glycemic control. Possible discharge later today once stress results if normal.
[2018-10-12] MEDS: Losartan 25 MG TAB PO SCH (09:40)
[2018-10-12] MEDS: Glimepiride 4 MG TAB PO SCH ×2 (09:41→22:16)
[2018-10-12] MEDS: Aspirin 81 mg Enteric Coated Tablet PO SCH (09:41)
[2018-10-12] MEDS: Multivitamin W/ Minerals 1 TAB PO SCH (09:41)
[2018-10-12] MEDS: Amlodipine 5 MG TAB PO SCH (09:41)
[2018-10-12] MEDS: Apixaban 5 MG TAB PO SCH (09:41)
[2018-10-12] MEDS: Timolol 0.5% Ophth Soln 5 ml Bottle EA EYE SCH ×2 (09:42→22:17)
[2018-10-12] MEDS: Brimonidine Tartrate 0.2% Ophth Soln 5 ml Bottle EA EYE SCH ×2 (09:42→22:17)
[2018-10-12] MEDS: HumaLOG 300 UNITS/3 ML VIAL SC SCH ×2 (09:53→18:18)
[2018-10-12] MEDS: INSULIN GLARGINE SC SCH ×2 (09:53→18:18)
[2018-10-12] MEDS: PRE FILLED SC SCH ×2 (09:53→18:18)
--- NOTE | 2018-10-12 14:14 | NM ---
CARDIAC SPECT: CLINICAL HISTORY: 63-year-old black female with chest pain, hypertension, CVA, diabetes, atrial fibrillation, TIA, COPD . TECHNIQUE: A myocardial perfusion scan was performed using the single isotope two day protocol with 32 mCi techn etium-99m sestamibi injected intravenously for both stress and rest images. Pharmacologic stress with Lexiscan was monitored and interpreted by Dr. Velazquez. FINDINGS: There is mildly decreased tracer localization in the septal and anterolateral bedolla on the stress pauly ges with reversibility at rest. GATED SPECT LVEF: 56%. WALL MOTION EXAM: Normal. IMPRESSION: Mild ischemia involving the septum and anterolateral bedolla. POS: [facility]
[2018-10-12] MEDS ORDERED: Sodium Chloride 0.9% 1,000 ML IV SCH (18:00)
[2018-10-12] MEDS: Atorvastatin Calcium 20 MG TAB PO SCH ×2 (22:16→22:20)
[2018-10-12] MEDS: DULoxetine 30 MG CAP PO SCH (22:16)
[2018-10-12] MEDS: Donepezil HCl 10 MG TAB PO SCH (22:16)
[2018-10-12] MEDS: Latanoprost 0.005% Ophth Soln 2.5 ml Bottle EA EYE SCH (22:17)
--- NOTE | 2018-10-13 00:30 | CON ---
DATE OF CONSULTATION: HISTORY OF PRESENT ILLNESS: Ms. Amberly Levin is a 63-year-old black female, who has been seen by Dr. Cullen and then Dr. Hernandez in the past. She underwent cardiac catheterization by Dr. Cullen in January 2014. Ejection fraction of 60% to 65%. There was 10-20 percent stenosis in the ramus and 20-30 percent ostial circumflex lesion. She then was seen in July [address] Hernandez for borderline troponin I levels. It was felt that no further evaluation was warranted with catheterization 2 years prior to that, not showing any significant stenosis. Ms. Levin has been admitted other times for chest discomfort. She also carries a diagnosis of paroxysmal atrial fibrillation and is on Eliquis. She has history of CVA and dementia. Currently, she has started having a cough and started to complain of chest discomfort with the cough and was transferred from [facility] to [facility]. She had abnormal troponin I and was transferred here for further evaluation. She states she has this pain when she coughs. Also with a deep breath, she has a discomfort. She could not tell me how long the pain lasts whenever she has it. yesterday, she underwent [facility] Cardiolite testing. This revealed mild ischemia involving the septum and the anterolateral bedolla. Unfortunately, there were no scan pictures on [facility] that can be reviewed. PAST MEDICAL HISTORY: Diabetes, hypercholesterolemia, hypertension, anxiety, history of stroke, paroxysmal atrial fibrillation, hypothyroidism. PAST SURGICAL HISTORY: , hysterectomy, thyroidectomy. CURRENT MEDICATIONS: 1. Eliquis 5 mg b.i.d. 2. Amlodipine 5 mg daily. 3. Aspirin 81 daily. 4. Atorvastatin 40 daily. 5. Aricept 20 mg at bedtime. 6. Cymbalta 90 mg at bedtime. 7. Amaryl 4 mg b.i.d. 8. Insulin. 9. Levothyroxine 200 mcg daily. 10. Linzess 290 mcg daily. 11. Losartan 100 mg daily. 12. Omeprazole 20 daily. 13. Multivitamin daily. 14. Seroquel 250 at bedtime. ALLERGIES: CEPHALEXIN. SOCIAL HISTORY: She lives in a halfway. She does not smoke or drink. REVIEW OF SYSTEMS: Unreliable with her dementia. PHYSICAL EXAMINATION: VITAL SIGNS: Blood pressure 134/63, pulse 78, sinus rhythm on the monitor. HEENT: PERRL. NECK: Supple. CHEST: Clear. CARDIAC: S1 and S2 normal without any S3, S4, or murmurs. Carotid upstrokes normal without bruits. ABDOMEN: Obese, normal bowel sounds. No tenderness. EXTREMITIES: Revealed no clubbing, cyanosis, or edema. NEUROLOGIC: Grossly intact except for her dementia. MUSCULOSKELETAL: Examination revealed palpable chest wall pain just to the left of the sternum. This seems to reproduce her pain. SKIN: Warm and dry. LABORATORY DATA: EKG reveals normal sinus rhythm and is unremarkable. Hemoglobin 11.3, hematocrit 34.2, white count 5900, and platelets 208,000. Creatinine today was 1.90. On admission, it was 1.43. Sodium 138, potassium 4.1, chloride 103, carbon dioxide 27, BUN 14. Troponin I 0.048. She has similar elevations of troponins in the past. Cholesterol 159, triglycerides 253, HDL 39, LDL 69. TSH is normal, BNP 14.5. IMPRESSION: 1. Finding of septal and anterior lateral ischemia on Cardiolite scan. Unfortunately, there are no scan pictures in [facility] for review. 2. Chest wall pain. 3. History of minimal coronary artery disease on catheterization in 2013. 4. Paroxysmal atrial fibrillation, on Eliquis. 5. Hypertension. 6. Hypercholesterolemia. 7. Diabetes. 8. Hypothyroidism. 9. Morbid obesity. 10. Gastroesophageal reflux disease. PLAN: Eliquis will be discontinued at this time in anticipation of possible cardiac catheterization. Also with her creatinine increasing to 1.9, gentle hydration will be started. The patient will be further evaluated by Dr. Hernandez in the morning. Job ID: [id number]
[2018-10-13 06:11] LABS: Anion Gap 12 mmol/L (10-20); BUN (Urea Nitrogen) 19 mg/dL (9.8-20.1); Calc. Creatinine Clearance 87 mL/min (70-130); Calcium 9.3 mg/dL (7.8-10.44); Carbon Dioxide 26 mmol/L (23-31); Chloride 106 mmol/L (98-107); Estimated GFR-MDRD 41; Glucose 141 mg/dL (80-115); Sodium 140 mmol/L (136-145)
--- NOTE | 2018-10-13 06:16 | PDOC.FM ---
- Subjective Subjective: pt resting comfortably in bed, denies cp or sob - Objective Vital Signs & Weight: Vital Signs (12 hours) Temp Pulse Resp BP BP Pulse Ox 10/13/18 03:30 98.1 F 72 20 137/62 97 10/13/18 00:30 98.4 F 74 18 178/78 H 96 10/12/18 22:17 75 168/85 H 10/12/18 19:50 98.0 F 75 18 166/85 H 93 L Weight Weight 145.15 kg I&O: 10/11/18 10/12/18 10/13/18 06:59 06:59 06:59 Intake Total 593 1400 640 Output Total 350 1500 750 Balance 243 -100 -110 Result Diagrams: 10/11/18 16:00 10/13/18 05:11 Phys Exam - Physical Examination Constitutional: NAD HEENT: moist MMs Neck: supple Gastrointestinal: no distention Musculoskeletal: edema present Neurological: moves all 4 limbs Skin: no rash Dx/Plan (1) Chest pain Code(s): R07.9 - CHEST PAIN, UNSPECIFIED Status: Acute (2) Diabetes mellitus type 2, uncontrolled Code(s): E11.65 - TYPE 2 DIABETES MELLITUS WITH HYPERGLYCEMIA Status: Acute (3) CKD (chronic kidney disease) stage 3, GFR 30-59 ml/min Code(s): N18.3 - CHRONIC KIDNEY DISEASE, STAGE 3 (MODERATE) Status: Chronic (4) Chronic anticoagulation Code(s): Z79.01 - PRECISION LATHE OPERATOR (CURRENT) USE OF ANTICOAGULANTS Status: Chronic (5) Dyslipidemia Code(s): E78.5 - HYPERLIPIDEMIA, UNSPECIFIED Status: Chronic (6) GERD (gastroesophageal reflux disease) Code(s): K21.9 - GASTRO-ESOPHAGEAL REFLUX DISEASE WITHOUT ESOPHAGITIS Status: Chronic (7) Hypertension Code(s): I10 - ESSENTIAL (PRIMARY) HYPERTENSION Status: Chronic - Plan Plan: Atypical chest pain - Heart score 4, Trop initially indeterminate, downtrended. - nm stress shows mild ischemia, Echo wnl -Repeat EKG for any new or worsening chest pain -Aspirin, atorvastatin - cardiology consulted, appreciate recs Hypertensive Urgency - initial BPs in the 210s/70s s/p clonidine and labetalol. BP now improved to 160s-190s systolic. -continue home BP medications, losartan, amlodipine DM2 -restart home meds -Accuchecks -Aggressive SSI Hypothyroidism -Continue home synthroid CKD3 Appears around baseline -Avoid nephrotoxic agents Alzheimers dementia -Will monitor closely -Continue donepezil atrial fibrillation -hold eliquis COPD -Duonebs prn GERD -Continue omeprazole, could potentially be a chest pain contributor. Code status:Full Dispo:cardiology to evaluate further today Addendum - Attending - Attending Attestation Date/Time: 10/13/18 0983 I personally evaluated the patient and discussed the management with Dr. Hoyt. I agree with the History, Examination, Assessment and Plan documented above with any addition or exceptions noted below. Patient overall stable. Had abnormal stress yesterday. There is potential for cardiac cath pending today's cardiology recs. Continue med mgmt for HTN and DM. Holding Eliquis at the moment in anticipation of cath. Further mgmt per cardiology recs.
[2018-10-13] MEDS: PRE FILLED SC SCH ×3 (06:25→17:55)
[2018-10-13] MEDS: INSULIN GLARGINE SC SCH ×3 (06:25→17:55)
[2018-10-13] MEDS: Levothyroxine Sodium 100 MCG TAB PO SCH (06:27)
[2018-10-13] MEDS ORDERED: Communication Order-Pharmacy FS SCH (09:15)
[2018-10-13] MEDS: Acetaminophen/Codeine 30-300mg Tablet PO PRN ×2 (09:20→20:56)
[2018-10-13] MEDS: Multivitamin W/ Minerals 1 TAB PO SCH (09:21)
[2018-10-13] MEDS: Amlodipine 5 MG TAB PO SCH (09:21)
[2018-10-13] MEDS: Brimonidine Tartrate 0.2% Ophth Soln 5 ml Bottle EA EYE SCH ×2 (09:22→20:39)
[2018-10-13] MEDS: Aspirin 81 mg Enteric Coated Tablet PO SCH (09:22)
[2018-10-13] MEDS: Timolol 0.5% Ophth Soln 5 ml Bottle EA EYE SCH ×2 (09:22→20:45)
[2018-10-13] MEDS: Glimepiride 4 MG TAB PO SCH ×2 (09:22→20:38)
[2018-10-13] MEDS: Losartan 25 MG TAB PO SCH (10:16)
[2018-10-13] MEDS: Sodium Chloride 0.9% 1,000 ML IV SCH ×2 (10:17→23:51)
--- NOTE | 2018-10-13 10:19 | PRG ---
DATE OF SERVICE: 10/13/2018 SUBJECTIVE: Ms. Levin complains of chest pain. It is easily reproduced with palpation of the lower sternum and costochondral junctions. The patient is unable to really answer any questions other than she is having some chest pain. She does not know what year it is. She cannot tell me where she lives. The nurse said she is even unable to answer the question what is her name. OBJECTIVE: VITAL SIGNS: Her blood pressure is 118/55, pulse 78. LUNGS: Clear. CARDIAC: Normal S1, normal S2. EXTREMITIES: Warm and dry. She does have femoral pulse in the right leg, but it is deep. Pedal pulse is present in dorsalis pedis on the right. Good radial pulse. LABORATORY DATA: The troponin level was indeterminate at 0.037. Stress test reveals possible mild anterior ischemia. LDL cholesterol 69. ASSESSMENT: 1. Musculoskeletal chest pain. 2. Abnormal stress test. 3. Previous stroke. 4. Previous history of atrial fibrillation, now in sinus rhythm. PLAN: Discussed catheterization with the family member, I believe it is her daughter. The risks discussed include stroke, heart attack, loss of blood supply to leg or kidneys, stent thrombosis, stent restenosis. They understand and wished to proceed. This will be arranged for tomorrow, hopefully from a radial approach in view of her severe morbid obesity with BMI of 56, risks of vascular complications are increased in this patients with this degree of severe morbid obesity. Job ID: [id number]
[2018-10-13] MEDS: HumaLOG 300 UNITS/3 ML VIAL SC SCH ×2 (10:26→17:55)
[2018-10-13] MEDS: HumaLOG 300 UNITS/3 ML VIAL SC PRN (11:30)
[2018-10-13] MEDS: Donepezil HCl 10 MG TAB PO SCH (20:36)
[2018-10-13] MEDS: DULoxetine 30 MG CAP PO SCH (20:38)
[2018-10-13] MEDS: Latanoprost 0.005% Ophth Soln 2.5 ml Bottle EA EYE SCH (20:45)
[2018-10-14 05:25] LABS: Anion Gap 12 mmol/L (10-20); BUN (Urea Nitrogen) 18 mg/dL (9.8-20.1); Calc. Creatinine Clearance 93 mL/min (70-130); Carbon Dioxide 25 mmol/L (23-31); Chloride 106 mmol/L (98-107); Estimated GFR-MDRD 43; Glucose 63 mg/dL (80-115); Potassium 3.8 mmol/L (3.5-5.1); Sodium 139 mmol/L (136-145)
[2018-10-14 05:47] VITALS: BMI 56.4
[2018-10-14] MEDS: PRE FILLED SC SCH ×3 (05:49→17:24)
[2018-10-14] MEDS: INSULIN GLARGINE SC SCH ×3 (05:49→17:24)
[2018-10-14] MEDS: Levothyroxine Sodium 100 MCG TAB PO SCH (05:49)
--- NOTE | 2018-10-14 06:22 | PDOC.FM ---
- Subjective Subjective: pt resting comfortably in bed, denies chest pain or SOB - Objective Vital Signs & Weight: Vital Signs (12 hours) Temp Pulse Resp BP BP Pulse Ox 10/14/18 04:25 98.1 F 82 20 113/54 L 92 L 10/14/18 00:00 91 10/13/18 20:45 86 141/65 H 10/13/18 20:00 98.6 F 86 20 141/65 H 141/65 H 96 Weight Weight 149.187 kg I&O: 10/12/18 10/13/18 10/14/18 06:59 06:59 06:59 Intake Total 1400 1540 2230 Output Total 1500 1050 1100 Balance -953 200 2867 Result Diagrams: 10/11/18 16:00 10/14/18 04:25 Phys Exam - Physical Examination Constitutional: NAD HEENT: moist MMs Neck: supple Gastrointestinal: no distention Musculoskeletal: edema present Lymphatic: no nodes Psychiatric: normal affect Dx/Plan (1) Chest pain Code(s): R07.9 - CHEST PAIN, UNSPECIFIED Status: Acute (2) Diabetes mellitus type 2, uncontrolled Code(s): E11.65 - TYPE 2 DIABETES MELLITUS WITH HYPERGLYCEMIA Status: Acute (3) CKD (chronic kidney disease) stage 3, GFR 30-59 ml/min Code(s): N18.3 - CHRONIC KIDNEY DISEASE, STAGE 3 (MODERATE) Status: Chronic (4) Chronic anticoagulation Code(s): Z79.01 - MCC (CURRENT) USE OF ANTICOAGULANTS Status: Chronic (5) Dyslipidemia Code(s): E78.5 - HYPERLIPIDEMIA, UNSPECIFIED Status: Chronic (6) GERD (gastroesophageal reflux disease) Code(s): K21.9 - GASTRO-ESOPHAGEAL REFLUX DISEASE WITHOUT ESOPHAGITIS Status: Chronic (7) Hypertension Code(s): I10 - ESSENTIAL (PRIMARY) HYPERTENSION Status: Chronic - Plan Plan: Atypical chest pain - Heart score 4, Trop initially indeterminate, downtrended. - nm stress shows mild ischemia, Echo wnl -Repeat EKG for any new or worsening chest pain -Aspirin, atorvastatin - cardiology consulted, appreciate recs Hypertensive Urgency - initial BPs in the 210s/70s s/p clonidine and labetalol. BP now improved to 160s-190s systolic. -continue home BP medications, losartan, amlodipine DM2 -restart home meds -Accuchecks -Aggressive SSI Hypothyroidism -Continue home synthroid CKD3 Appears around baseline -Avoid nephrotoxic agents Alzheimers dementia -Will monitor closely -Continue donepezil atrial fibrillation -hold eliquis COPD -Duonebs prn GERD -Continue omeprazole, could potentially be a chest pain contributor. Code status:Full Dispo:cath today, possible dc afterwords Addendum - Attending - Attending Attestation Date/Time: 10/14/18 2317 I personally evaluated the patient and discussed the management with Dr. Hoyt. I agree with the History, Examination, Assessment and Plan documented above with any addition or exceptions noted below. Patient overall stable. Undergoing heart cath this morning with Dr. Hernandez. Further mgmt dependant on that result. BP controlled and blood sugars improved. Renal function stable from baseline.
[2018-10-14] MEDS: HumaLOG 300 UNITS/3 ML VIAL SC SCH ×2 (08:53→17:25)
[2018-10-14] MEDS: Glimepiride 4 MG TAB PO SCH ×2 (09:59→20:09)
[2018-10-14] MEDS: Losartan 25 MG TAB PO SCH (09:59)
[2018-10-14] MEDS: Multivitamin W/ Minerals 1 TAB PO SCH (09:59)
[2018-10-14] MEDS: Amlodipine 5 MG TAB PO SCH (10:00)
[2018-10-14] MEDS: Aspirin 81 mg Enteric Coated Tablet PO SCH (10:00)
[2018-10-14] MEDS: Brimonidine Tartrate 0.2% Ophth Soln 5 ml Bottle EA EYE SCH ×2 (10:00→23:03)
[2018-10-14] MEDS: Timolol 0.5% Ophth Soln 5 ml Bottle EA EYE SCH ×2 (10:01→23:07)
[2018-10-14] MEDS: Sodium Chloride 0.9% 1,000 ML IV SCH (14:05)
--- NOTE | 2018-10-14 16:30 | EKG ---
Test Reason : C/O CHEST PAIN Blood Pressure : / mmHG Vent. Rate : 078 BPM Atrial Rate : 078 BPM P-R Int : 138 ms QRS Dur : 084 ms QT Int : 404 ms P-R-T Axes : 076 070 035 degrees QTc Int : 460 ms Normal sinus rhythm Normal ECG Confirmed by DANIELLE ZARAGOZA ([id number]) on 10/14/2018 4:30:36 PM Referred By: VANNESSA Confirmed By:DANIELLE ZARAGOZA
[2018-10-14] MEDS ORDERED: hydrALAZINE 20 MG/ML VIAL SLOW IVP PRN (19:43)
[2018-10-14] MEDS: DULoxetine 30 MG CAP PO SCH (20:07)
[2018-10-14] MEDS: Atorvastatin Calcium 20 MG TAB PO SCH (20:07)
[2018-10-14] MEDS: Donepezil HCl 10 MG TAB PO SCH (20:08)
[2018-10-14] MEDS: Latanoprost 0.005% Ophth Soln 2.5 ml Bottle EA EYE SCH (20:10)
--- NOTE | 2018-10-14 21:08 | RAD ---
Chest one view HISTORY: Dyspnea. COMPARISON: 10/10/2018. FINDINGS: Cardiac silhouette is magnified by projection. Pulmonary vasculature upper limits of normal . Mediastinum is midline. No lobar consolidation or evidence of pneumothorax. patient monitor leads overlie the chest. IMPRESSION: No active cardiopulmonary abnormalities are demonstrated.
[2018-10-14] MEDS ORDERED: Furosemide 20 MG/2 ML VIAL SLOW IVP SCH (21:45)
[2018-10-14] MEDS: Nitroglycerin 0.4 MG TAB (25 Tab Bottle) PO PRN ×3 (22:53→23:05)
[2018-10-14] MEDS ORDERED: Melatonin 3 MG TAB PO PRN (23:47)
[2018-10-15] MEDS ORDERED: Ketorolac Tromethamine 30 MG/ML VIAL IVP SCH (03:15)
[2018-10-15] MEDS: Sodium Chloride 0.9% 1,000 ML IV SCH (04:32)
[2018-10-15 04:48] LABS: Anion Gap 14 mmol/L (10-20); BUN (Urea Nitrogen) 19 mg/dL (9.8-20.1); Calc. Creatinine Clearance 83 mL/min (70-130); Calcium 8.5 mg/dL (7.8-10.44); Carbon Dioxide 21 mmol/L (23-31); Chloride 109 mmol/L (98-107); Estimated GFR-MDRD 37; Glucose 143 mg/dL (80-115); Magnesium 1.9 mg/dL (1.6-2.6); Potassium 4.6 mmol/L (3.5-5.1); Sodium 139 mmol/L (136-145)
[2018-10-15 04:51] LABS: Hemoglobin 10.5 g/dL (12.0-16.0); Hypochromia SLIGHT = 6-15 cells (100X) (0-5/hpf); Lymphocytes 49 % (21-51); MDiff Complete? YES; Mean Corpuscular HGB CONC 33.8 g/dL (32.0-36.0); Mean Corpuscular Hemoglobin 28.9 pg (27.0-31.0); Mean Corpuscular Volume 85.4 fL (78.0-98.0); Mean Platelet Volume 8.5 fL (7.4-10.4); Monocytes 6 % (0-10); Neutrophil 45 % (42-75); Platelet Count 162 thou/uL (130-400); Platelet Morphology Comment Appears Adequate; RBC Distribution Width 12.4 % (11.5-14.5); Red Blood Cell (RBC) Count 3.64 mill/uL (4.20-5.40); White Blood Cell (WBC) Count 4.7 thou/uL (4.8-10.8)
--- NOTE | 2018-10-15 06:30 | PDOC.FM ---
- Subjective Subjective: pt resting comfortably in bed, denies SOB or CP - Objective Vital Signs & Weight: Vital Signs (12 hours) Temp Pulse Resp BP BP Pulse Ox 10/15/18 03:52 98.4 F 79 16 113/54 L 98 10/14/18 23:48 91 134/62 10/14/18 23:07 90 130/56 L 10/14/18 20:07 78 206/83 H 10/14/18 20:00 84 L Weight Weight 149.187 kg I&O: 10/13/18 10/14/18 10/15/18 06:59 06:59 06:59 Intake Total 1540 2230 1000 Output Total 1050 1100 Balance 490 1130 1000 Result Diagrams: 10/15/18 04:26 10/15/18 04:26 Phys Exam - Physical Examination Constitutional: NAD HEENT: moist MMs Neck: supple Respiratory: clear to auscultation bilateral Cardiovascular: no significant murmur Gastrointestinal: non-tender Musculoskeletal: edema present Psychiatric: normal affect Skin: no rash Dx/Plan (1) Chest pain Code(s): R07.9 - CHEST PAIN, UNSPECIFIED Status: Acute (2) Diabetes mellitus type 2, uncontrolled Code(s): E11.65 - TYPE 2 DIABETES MELLITUS WITH HYPERGLYCEMIA Status: Acute (3) CKD (chronic kidney disease) stage 3, GFR 30-59 ml/min Code(s): N18.3 - CHRONIC KIDNEY DISEASE, STAGE 3 (MODERATE) Status: Chronic (4) Chronic anticoagulation Code(s): Z79.01 - BRAZER CONTROLLED ATMOSPHERIC FURNACE (CURRENT) USE OF ANTICOAGULANTS Status: Chronic (5) Dyslipidemia Code(s): E78.5 - HYPERLIPIDEMIA, UNSPECIFIED Status: Chronic (6) GERD (gastroesophageal reflux disease) Code(s): K21.9 - GASTRO-ESOPHAGEAL REFLUX DISEASE WITHOUT ESOPHAGITIS Status: Chronic (7) Hypertension Code(s): I10 - ESSENTIAL (PRIMARY) HYPERTENSION Status: Chronic - Plan Plan: Atypical chest pain - Heart score 4, Trop initially indeterminate, downtrended. - nm stress shows mild ischemia, Echo wnl -Repeat EKG for any new or worsening chest pain -Aspirin, atorvastatin - cardiology consulted, appreciate recs Hypertensive Urgency - initial BPs in the 210s/70s s/p clonidine and labetalol. BP now improved to 160s-190s systolic. -continue home BP medications, losartan, amlodipine DM2 -restart home meds -Accuchecks -Aggressive SSI Hypothyroidism -Continue home synthroid CKD3 Appears around baseline -Avoid nephrotoxic agents Alzheimers dementia -Will monitor closely -Continue donepezil atrial fibrillation -hold eliquis COPD -Duonebs prn GERD -Continue omeprazole, could potentially be a chest pain contributor. Code status:Full Dispo:cath today, possible dc afterwords Addendum - Attending - Attending Attestation Date/Time: 10/15/18 [id number] I personally evaluated the patient and discussed the management with Dr. Hoyt. I agree with the History, Examination, Assessment and Plan documented above with any addition or exceptions noted below. Patient stable. She is undergoing heart cath today. Denies chest pain. Further mgmt per that result.
[2018-10-15] MEDS: PRE FILLED SC SCH ×2 (08:02→18:23)
[2018-10-15] MEDS: INSULIN GLARGINE SC SCH ×2 (08:02→18:23)
[2018-10-15] MEDS: Levothyroxine Sodium 100 MCG TAB PO SCH (08:05)
[2018-10-15] MEDS: Aspirin 81 mg Enteric Coated Tablet PO SCH (08:53)
[2018-10-15] MEDS: HumaLOG 300 UNITS/3 ML VIAL SC SCH ×2 (08:53→18:23)
[2018-10-15] MEDS: Glimepiride 4 MG TAB PO SCH (08:54)
[2018-10-15] MEDS: Multivitamin W/ Minerals 1 TAB PO SCH (08:54)
[2018-10-15] MEDS: Brimonidine Tartrate 0.2% Ophth Soln 5 ml Bottle EA EYE SCH (08:58)
[2018-10-15] MEDS: Losartan 25 MG TAB PO SCH (08:58)
[2018-10-15] MEDS: Amlodipine 5 MG TAB PO SCH (08:58)
[2018-10-15] MEDS: Timolol 0.5% Ophth Soln 5 ml Bottle EA EYE SCH (08:59)
[2018-10-15] MEDS ORDERED: Iopamidol 370 76% 100 ML VIAL ONE (09:47)
[2018-10-15] MEDS ORDERED: Heparin 10,000 UNITS/1 ML VIAL ONE (11:54)
[2018-10-15] MEDS ORDERED: Verapamil 5 MG/2 ML VIAL ONE (11:54)
[2018-10-15] MEDS ORDERED: Nitroglycerin 100MG/250ML BOT 250 ML ONE (11:55)
[2018-10-15] MEDS ORDERED: Lidocaine 1% (PF) 30 ML VIAL ONE (11:55)
[2018-10-15] MEDS ORDERED: Fentanyl 100 MCG/2 ML VIAL ONE (13:22)
[2018-10-15] MEDS ORDERED: Midazolam HCl 2 mg/2 ml Vial ONE (13:22)
[2018-10-15] MEDS ORDERED: Acetaminophen/Codeine 30-300mg Tablet PO PRN (14:23)
[2018-10-15] MEDS ORDERED: Sodium Chloride 0.9% 200 ML IV PRN (14:23)
[2018-10-15] MEDS ORDERED: Sodium Chloride 0.9% 500 ML IV SCH (14:30)
[2018-10-15 15:11] VITALS: BP 125/62; TEMP 97.6
--- NOTE | 2018-10-17 00:35 | EKG ---
Test Reason : CP REPEAT Blood Pressure : / mmHG Vent. Rate : 071 BPM Atrial Rate : 071 BPM P-R Int : 142 ms QRS Dur : 080 ms QT Int : 414 ms P-R-T Axes : 079 069 034 degrees QTc Int : 449 ms Normal sinus rhythm Normal ECG Confirmed by DEANNA GILBERT ([id number]), social media editor CHING CASSIDY ([id number]) on 10/17/2018 12:35:11 AM Referred By: VLADIMIR Confirmed By:DEANNA GILBERT
--- NOTE | 2018-10-18 16:37 | EKG ---
Test Reason : STAT Blood Pressure : / mmHG Vent. Rate : 081 BPM Atrial Rate : 081 BPM P-R Int : 142 ms QRS Dur : 080 ms QT Int : 390 ms P-R-T Axes : 076 061 040 degrees QTc Int : 453 ms Normal sinus rhythm Normal ECG Confirmed by DANIELLE ZARAGOZA ([id number]) on 10/18/2018 4:36:45 PM Referred By: BRADY ELI Confirmed By:DANIELLE ZARAGOZA
== END 2018-10-15 19:34 | DRG 287 ==
LOC: ERS 21:20 → 2NO 22:00 → OBSVTOIN 22:00
PROVIDERS: ADMIT Student in an Organized Health Care Education/Training Program; ATTEND Student in an Organized Health Care Education/Training Program
PROC: 4A023N7 Measurement of Cardiac Sampling and Pressure, Left Heart, Percutaneous Approach (ICD-10-PCS; principal; 2018-10-10)
PROC: B2111ZZ Fluoroscopy of Multiple Coronary Arteries using Low Osmolar Contrast (ICD-10-PCS; 2018-10-10)
PROC: B2151ZZ Fluoroscopy of Left Heart using Low Osmolar Contrast (ICD-10-PCS; 2018-10-10)
DX: R07.89 Other chest pain (principal); Z68.43 Body mass index [BMI] 50.0-59.9, adult; I12.9 Hypertensive chronic kidney disease with stage 1 through stage 4 chronic kidney disease, or unspecified chronic kidney disease; E78.5 Hyperlipidemia, unspecified; E11.22 Type 2 diabetes mellitus with diabetic chronic kidney disease; E03.9 Hypothyroidism, unspecified; D64.9 Anemia, unspecified; G47.00 Insomnia, unspecified; I48.91 Unspecified atrial fibrillation; J44.9 Chronic obstructive pulmonary disease, unspecified; K21.9 Gastro-esophageal reflux disease without esophagitis; E66.01 Morbid (severe) obesity due to excess calories; I16.0 Hypertensive urgency; G30.9 Alzheimer's disease, unspecified; F02.80 Dementia in other diseases classified elsewhere, unspecified severity, without behavioral disturbance, psychotic disturbance, mood disturbance, and anxiety; N18.3 Chronic kidney disease, stage 3 (moderate); Z79.899 Other long term (current) drug therapy; Z86.73 Personal history of transient ischemic attack (TIA), and cerebral infarction without residual deficits; Z79.4 Long term (current) use of insulin; Z88.8 Allergy status to other drugs, medicaments and biological substances; Z90.710 Acquired absence of both cervix and uterus; Z90.89 Acquired absence of other organs; Z79.01 Long term (current) use of anticoagulants
CPT/HCPCS: 36415; 36416; 71045; 78452; 80048; 80061; 81003; 81015; 83690; 83735; 84443; 84484; 85025; 93005; 93010; 93017; 93306; 93455; 93567; 94760; 96374; 99152; A9500; C1769; J0360; J1644; J1815; J1885; J1940; J2001; J2250; J2785; J3010; Q9967

== ENCOUNTER 2019-11-10 18:22 | Emergency (ER) | payer MEDICARE, OTHER ==
[2019-11-10 19:06] LABS: #Basophils 0.1 thou/uL (0.0-0.2); #Eosinphils 0.1 thou/uL (0.0-0.7); #Lymphocytes 1.9 thou/uL (1.20-3.40); #Monocytes 0.7 thou/uL (0.11-0.59); #Neutrophils 4.9 thou/uL (1.40-6.50); %Basophils 1.1 % (0.0-1.0); %Eosinophils 1.4 % (0.0-10.0); %Lymphocytes 25.2 % (21.0-51.0); %Monocytes 8.6 % (0.0-10.0); %Neutrophils 63.7 % (42.0-75.0); Hemoglobin 11.1 g/dL (12.0-16.0); Mean Corpuscular HGB CONC 32.8 g/dL (32.0-36.0); Mean Corpuscular Hemoglobin 28.2 pg (27.0-31.0); Mean Corpuscular Volume 86.1 fL (78.0-98.0); Mean Platelet Volume 7.8 fL (7.4-10.4); Platelet Count 308 thou/uL (130-400); RBC Distribution Width 13.1 % (11.5-14.5); Red Blood Cell (RBC) Count 3.95 mill/uL (4.20-5.40); White Blood Cell (WBC) Count 7.6 thou/uL (4.8-10.8)
[2019-11-10] MEDS ORDERED: Ondansetron PF 4 MG/2 ML Vial ONE (19:13)
[2019-11-10 19:30] LABS: ALT (SGPT) 16 U/L (8-55); AST (SGOT) 16 U/L (5-34); Albumin 4.6 g/dL (3.4-4.8); Alkaline Phosphatase 115 U/L (40-110); Anion Gap 19 mmol/L (10-20); BUN (Urea Nitrogen) 22 mg/dL (9.8-20.1); Bilirubin, Total 0.3 mg/dL (0.2-1.2); CK (CPK) 165 U/L (29-168); Calc. Creatinine Clearance 0 mL/min (70-130); Calcium 9.3 mg/dL (7.8-10.44); Carbon Dioxide 21 mmol/L (23-31); Chloride 104 mmol/L (98-107); Estimated GFR-MDRD 22; Globulin 3.6 g/dL (2.4-3.5); Glucose 139 mg/dL (80-115); Lipase 39 U/L (8-78); Potassium 4.5 mmol/L (3.5-5.1); Protein, Total 8.2 g/dL (6.0-8.3); Sodium 139 mmol/L (136-145)
[2019-11-10 19:39] LABS: Bacteria/HPF 2+ HPF (None Seen); Bilirubin Negative (Negative); Blood, Urine Trace (Negative); Clarity Clear (Clear); Glucose, Urine (Dipstick) Normal (Negative); Ketone, Urine Negative (Negative); Leukocyte Negative Leu/uL (Negative); Nitrite Negative (Negative); Protein, Urine (Dipstick) 100 mg/dL (Neg-Trace); RBC/HPF 0-3 HPF (0-3); Specific Gravity, Urine 1.011 (1.002-1.036); Squamous Epithelial 0-3 HPF (0-3); Urobilinogen Normal mg/dL (Less than 2); WBC/HPF 0-3 HPF (0-3)
--- NOTE | 2019-11-10 20:07 | ULT ---
EXAM: Left lower extremity venous Doppler US HISTORY: left lower extremity edema and pain FINDINGS: Grayscale, color-flow, Doppler evaluation, spectral analysis of the left lower extremity venous struc tures is performed with 2-D imaging. The left common femoral, superficial femoral, popliteal, posterior tibial, proximal greater saphenous and profunda femoral veins are imaged. The left femoral vein in the distal thigh is not satisfactorily visualized. There is normal luminal c ompressibility, flow, and augmentation the visualized deep venous structures of the left lower extremity. IMPRESSION: No evidence of a deep vein thrombosis in the left lower extremity.
--- NOTE | 2019-11-10 20:44 | CT ---
CT ABDOMEN PELVIS WITHOUT IV CONTRAST: HISTORY:Right lower quadrant abdominal pain and flank pain COMPARISON: 04/13/2019 DISCLAIMER: Absence of oral and IV contrast reduces the sensitivity of the exam particularly for the evaluation of solid organs and bowel. FINDINGS: The lung bases are clear. No free air or free fluid is seen in the abdomen or pelvis. No calcified ga llstones are noted. No calculi are seen in the kidneys, ureters or the urinary bladder. The small bowel loops are not abnormally dilated. An abnormal appendix is not visualized. There are vascular ca lcifications without evidence of aneurysmal dilatation of the abdominal Doppler. There are degenerative changes in the spine. IMPRESSION: No CT evidence of urinary tract calculi/obstruction or appendicitis.
== END 2019-11-10 23:11 ==
LOC: ERS 18:22
DX: R10.9 Unspecified abdominal pain (principal); R10.811 Right upper quadrant abdominal tenderness; M79.662 Pain in left lower leg; E03.9 Hypothyroidism, unspecified; D64.9 Anemia, unspecified; E11.21 Type 2 diabetes mellitus with diabetic nephropathy; J44.9 Chronic obstructive pulmonary disease, unspecified; K21.9 Gastro-esophageal reflux disease without esophagitis; M19.90 Unspecified osteoarthritis, unspecified site; I12.9 Hypertensive chronic kidney disease with stage 1 through stage 4 chronic kidney disease, or unspecified chronic kidney disease; N18.9 Chronic kidney disease, unspecified; Z86.73 Personal history of transient ischemic attack (TIA), and cerebral infarction without residual deficits; F31.9 Bipolar disorder, unspecified; F41.9 Anxiety disorder, unspecified; Z79.01 Long term (current) use of anticoagulants; Z79.82 Long term (current) use of aspirin; Z79.899 Other long term (current) drug therapy
CPT/HCPCS: 74176; 80053; 81003; 81015; 82550; 83690; 85025; 96361; 96374; J2405

== ENCOUNTER 2023-08-23 22:07 | Emergency (ER) | payer MEDICARE, OTHER ==
[2023-08-23 23:34] LABS: #Basophils 0.03 10x3/uL (0.0-0.2); %Basophils 0.4 % (0.0-1.0); %Eosinophils 2.2 % (0.0-10.0); %Lymphocytes 19.5 % (21.0-51.0); %Monocytes 9.5 % (0.0-10.0); %Neutrophils 68.3 % (42.0-75.0); Hematocrit 36.3 % (36.0-47.0); Hemoglobin 11.5 g/dL (12.0-16.0); Mean Corpuscular HGB CONC 31.7 g/dL (32.0-36.0); Mean Corpuscular Hemoglobin 26.1 pg (27.0-31.0); Mean Corpuscular Volume 82.5 fL (78.0-98.0); Mean Platelet Volume 10.7 fL (7.4-10.4); Platelet Count 216 10x3/uL (130-400); RBC Distribution Width 14.5 % (11.5-14.5)
[2023-08-24 00:08] LABS: ALT (SGPT) 10 U/L (8-55); AST (SGOT) 9 U/L (5-34); Albumin 3.2 g/dL (3.4-4.8); Alkaline Phosphatase 85 U/L (40-110); Anion Gap 17 mmol/L (10-20); BUN (Urea Nitrogen) 41 mg/dL (9.8-20.1); Bilirubin, Total 0.3 mg/dL (0.2-1.2); Calc. Creatinine Clearance 0 mL/min (70-130); Calcium 9.5 mg/dL (7.8-10.44); Carbon Dioxide 17 mmol/L (23-31); Chloride 110 mmol/L (98-107); Estimated GFR 20; Globulin 3.5 g/dL (2.4-3.5); Glucose 142 mg/dL (80-115); Potassium 4.2 mmol/L (3.5-5.1); Protein, Total 6.7 g/dL (5.8-8.1); Sodium 140 mmol/L (136-145)
[2023-08-24 00:42] LABS: Bacteria/HPF 4+ HPF (None Seen); Bilirubin Negative (Negative); Blood, Urine Negative (Negative); CAUTI Indications for Culture Dysuria,urgency,freq; Clarity Turbid (Clear); Glucose, Urine (Dipstick) Normal (Negative); Ketone, Urine Negative (Negative); Leukocyte 500 Leu/uL (Negative); Nitrite Negative (Negative); Protein, Urine (Dipstick) 30 mg/dL (Neg-Trace); RBC/HPF 0-3 HPF (0-3); Specific Gravity, Urine 1.012 (1.002-1.036); Urobilinogen Normal mg/dL (Less than 2); pH, Urine 5.5 (5.0-9.0)
[2023-08-24 00:44] LABS: Urine Culture Reflex Yes Yes
== END 2023-08-24 03:01 ==
LOC: ERS 22:07
DX: R56.9 Unspecified convulsions (principal); N39.0 Urinary tract infection, site not specified; I12.9 Hypertensive chronic kidney disease with stage 1 through stage 4 chronic kidney disease, or unspecified chronic kidney disease; N18.9 Chronic kidney disease, unspecified; E11.22 Type 2 diabetes mellitus with diabetic chronic kidney disease; I48.91 Unspecified atrial fibrillation; E03.9 Hypothyroidism, unspecified; E78.00 Pure hypercholesterolemia, unspecified; E11.40 Type 2 diabetes mellitus with diabetic neuropathy, unspecified; Z79.01 Long term (current) use of anticoagulants; Z79.82 Long term (current) use of aspirin; Z55.9 Problems related to education and literacy, unspecified
CPT/HCPCS: 36415; 36416; 51701; 70450; 80053; 81001; 83605; 84146; 85025; 87077; 87086; 87186; 93005

== ENCOUNTER 2024-01-09 05:00 | Inpatient (IN) | payer MEDICARE, MEDICAID ==
[2024-01-09 05:47] LABS: #Basophils 0.04 10x3/uL (0.0-0.2); %Basophils 0.6 % (0.0-1.0); %Eosinophils 3.1 % (0.0-10.0); %Lymphocytes 27.3 % (21.0-51.0); %Monocytes 7.8 % (0.0-10.0); %Neutrophils 61.1 % (42.0-75.0); Hematocrit 34.8 % (36.0-47.0); Hemoglobin 11.1 g/dL (12.0-16.0); Mean Corpuscular HGB CONC 31.9 g/dL (32.0-36.0); Mean Corpuscular Hemoglobin 27.3 pg (27.0-31.0); Mean Corpuscular Volume 85.7 fL (78.0-98.0); Mean Platelet Volume 9.9 fL (7.4-10.4); Platelet Count 185 10x3/uL (130-400); RBC Distribution Width 13.4 % (11.5-14.5); Red Blood Cell (RBC) Count 4.06 mill/uL (4.20-5.40)
[2024-01-09 06:01] LABS: ALT (SGPT) 10 U/L (8-55); AST (SGOT) 11 U/L (5-34); Albumin 3.4 g/dL (3.4-4.8); Alkaline Phosphatase 83 U/L (40-110); Anion Gap 15 mmol/L (10-20); BUN (Urea Nitrogen) 32 mg/dL (9.8-20.1); Bilirubin, Total 0.3 mg/dL (0.2-1.2); Calc. Creatinine Clearance 0 mL/min (70-130); Calcium 9.5 mg/dL (7.8-10.44); Carbon Dioxide 21 mmol/L (23-31); Chloride 109 mmol/L (98-107); Estimated GFR 20; Globulin 3.6 g/dL (2.4-3.5); Glucose 96 mg/dL (80-115); Potassium 4.3 mmol/L (3.5-5.1); Sodium 141 mmol/L (136-145)
[2024-01-09 06:26] LABS: Bacteria/HPF 3+ HPF (None Seen); Bilirubin Negative (Negative); Blood, Urine Negative (Negative); CAUTI Indications for Culture Alt mental st,lethar; Clarity Turbid (Clear); Glucose, Urine (Dipstick) Normal (Negative); Ketone, Urine 10 mg/dL (Negative); Leukocyte 500 Leu/uL (Negative); Nitrite Negative (Negative); Protein, Urine (Dipstick) 20 mg/dL (Neg-Trace); RBC/HPF 0-3 HPF (0-3); Specific Gravity, Urine 1.007 (1.002-1.036); Squamous Epithelial 0-3 HPF (0-3); Urobilinogen Normal mg/dL (Less than 2); WBC/HPF 21-50 HPF (0-3); pH, Urine 6.5 (5.0-9.0)
[2024-01-09] MEDS ORDERED: Sulfameth/Trimethoprim DS 800-160mg TAB ONE (06:36)
[2024-01-09 06:39] LABS: Urine Culture Reflex Yes Yes
[2024-01-09] MEDS ORDERED: Glucagon 1 MG/ML KIT IM PRN (08:07)
[2024-01-09] MEDS ORDERED: Dextrose 5% in Water 1,000 ML IV PRN (08:07)
[2024-01-09] MEDS ORDERED: Insulin Lispro 100 UNIT/ML 10 ML VIAL SC PRN ×2 (08:07)
[2024-01-09] MEDS ORDERED: Dextrose 50% Abboject 50 ML SYRINGE SLOW IVP PRN (08:07)
[2024-01-09] MEDS: Sodium Chloride 0.9% 1,000 ML IV SCH (16:40)
[2024-01-09 17:29] LABS: Magnesium 2.2 mg/dL (1.6-2.6); Phosphorus 4.5 mg/dL (2.3-4.7)
[2024-01-09 18:06] LABS: Amphetamine Not Detected (NotDetected); Barbiturates Screen Not Detected (NotDetected); Benzodiazepine Screen Not Detected (NotDetected); Cocaine Metabolite Screen Not Detected (NotDetected); Methadone Not Detected (NotDetected); Methamphetamine Not Detected (NotDetected); Opiate Screen Not Detected (NotDetected); Oxycodone Screen Not Detected (NotDetected); Phencyclidine (PCP) Not Detected (NotDetected); THC/Cannabinoid Screen Not Detected (NotDetected); Tricyclic Screen Not Detected (NotDetected)
[2024-01-09] MEDS: Atorvastatin Calcium 40 MG TAB PER TUBE SCH (22:57)
[2024-01-09] MEDS: Apixaban 5 MG TAB PER TUBE SCH (22:57)
[2024-01-10 03:50] VITALS: BMI 34.1
[2024-01-10 05:18] LABS: #Basophils 0.03 10x3/uL (0.0-0.2); %Basophils 0.3 % (0.0-1.0); %Eosinophils 1.6 % (0.0-10.0); %Lymphocytes 17.7 % (21.0-51.0); %Monocytes 6.5 % (0.0-10.0); %Neutrophils 73.6 % (42.0-75.0); Hematocrit 34.7 % (36.0-47.0); Hemoglobin 10.9 g/dL (12.0-16.0); Mean Corpuscular HGB CONC 31.4 g/dL (32.0-36.0); Mean Corpuscular Hemoglobin 27.1 pg (27.0-31.0); Mean Corpuscular Volume 86.3 fL (78.0-98.0); Platelet Count 187 10x3/uL (130-400); RBC Distribution Width 13.2 % (11.5-14.5); Red Blood Cell (RBC) Count 4.02 mill/uL (4.20-5.40)
[2024-01-10 05:44] LABS: ALT (SGPT) 8 U/L (8-55); AST (SGOT) 12 U/L (5-34); Albumin 3.4 g/dL (3.4-4.8); Alkaline Phosphatase 82 U/L (40-110); Anion Gap 15 mmol/L (10-20); BUN (Urea Nitrogen) 33 mg/dL (9.8-20.1); Bilirubin, Total 0.3 mg/dL (0.2-1.2); Calc. Creatinine Clearance 28 mL/min (70-130); Calcium 9.1 mg/dL (7.8-10.44); Carbon Dioxide 20 mmol/L (23-31); Chloride 111 mmol/L (98-107); Estimated GFR 20; Globulin 3.6 g/dL (2.4-3.5); Glucose 108 mg/dL (80-115); Sodium 142 mmol/L (136-145)
[2024-01-10] MEDS: Levothyroxine 150 MCG TAB PER TUBE SCH (05:53)
[2024-01-10] MEDS: Sertraline 100 MG TAB PER TUBE SCH (08:41)
[2024-01-10] MEDS: Aspirin Chewable 81 MG TAB PER TUBE SCH (08:51)
[2024-01-10] MEDS: Fosfomycin 3 GM/Packet PER TUBE SCH (17:44)
[2024-01-11 04:58] LABS: #Basophils 0.03 10x3/uL (0.0-0.2); %Basophils 0.5 % (0.0-1.0); %Eosinophils 3.8 % (0.0-10.0); %Lymphocytes 28.8 % (21.0-51.0); %Monocytes 9.9 % (0.0-10.0); %Neutrophils 56.7 % (42.0-75.0); Hematocrit 38.9 % (36.0-47.0); Hemoglobin 12.2 g/dL (12.0-16.0); Mean Corpuscular HGB CONC 31.4 g/dL (32.0-36.0); Mean Corpuscular Hemoglobin 27.2 pg (27.0-31.0); Mean Corpuscular Volume 86.6 fL (78.0-98.0); Platelet Count 196 10x3/uL (130-400); RBC Distribution Width 13.1 % (11.5-14.5); Red Blood Cell (RBC) Count 4.49 mill/uL (4.20-5.40)
[2024-01-11 05:12] LABS: ALT (SGPT) 10 U/L (8-55); AST (SGOT) 15 U/L (5-34); Albumin 3.6 g/dL (3.4-4.8); Alkaline Phosphatase 87 U/L (40-110); Anion Gap 16 mmol/L (10-20); BUN (Urea Nitrogen) 31 mg/dL (9.8-20.1); Bilirubin, Total 0.4 mg/dL (0.2-1.2); Calc. Creatinine Clearance 32 mL/min (70-130); Calcium 9.5 mg/dL (7.8-10.44); Carbon Dioxide 20 mmol/L (23-31); Cardiac Risk 4.5 (Less than 4.5); Chloride 112 mmol/L (98-107); Cholesterol 181 mg/dl (< 200 Desired); Estimated GFR 22; Globulin 4.1 g/dL (2.4-3.5); Glucose 85 mg/dL (80-115); HDL Cholesterol 40 mg/dL (>60 Neg Risk); LDL Cholesterol, Calculated 115 mg/dL; Protein, Total 7.7 g/dL (5.8-8.1); Sodium 144 mmol/L (136-145); Triglycerides 128 mg/dL (Less than 150)
[2024-01-11 10:55] VITALS: BMI 34.1
[2024-01-11] MEDS: Lansoprazole 30 MG/10 ML UDCUP PER TUBE SCH (14:16)
[2024-01-11] MEDS: Meropenem 1 GM in Sodium Chloride 0.9% 100 ML IVPB SCH (16:16)
[2024-01-11] MEDS: Atorvastatin Calcium 20 MG TAB PER TUBE SCH (22:36)
[2024-01-12] MEDS: Meropenem 500 MG in Sodium Chloride 0.9% 100 ML IVPB SCH (02:52)
[2024-01-12 04:37] LABS: #Basophils Less than 0.03 10x3/uL (0.0-0.2); %Basophils 0.3 % (0.0-1.0); %Eosinophils 2.7 % (0.0-10.0); %Lymphocytes 20.5 % (21.0-51.0); %Monocytes 11.7 % (0.0-10.0); %Neutrophils 64.5 % (42.0-75.0); Hematocrit 36.6 % (36.0-47.0); Hemoglobin 11.8 g/dL (12.0-16.0); Mean Corpuscular HGB CONC 32.2 g/dL (32.0-36.0); Mean Corpuscular Hemoglobin 27.1 pg (27.0-31.0); Mean Corpuscular Volume 83.9 fL (78.0-98.0); Mean Platelet Volume 11.1 fL (7.4-10.4); Platelet Count 156 10x3/uL (130-400); RBC Distribution Width 13.1 % (11.5-14.5); Red Blood Cell (RBC) Count 4.36 mill/uL (4.20-5.40)
[2024-01-12 05:19] LABS: ALT (SGPT) 7 U/L (8-55); AST (SGOT) 15 U/L (5-34); Albumin 3.1 g/dL (3.4-4.8); Alkaline Phosphatase 83 U/L (40-110); Anion Gap 13 mmol/L (10-20); BUN (Urea Nitrogen) 31 mg/dL (9.8-20.1); Bilirubin, Total 0.2 mg/dL (0.2-1.2); Calc. Creatinine Clearance 34 mL/min (70-130); Calcium 8.8 mg/dL (7.8-10.44); Carbon Dioxide 19 mmol/L (23-31); Chloride 114 mmol/L (98-107); Estimated GFR 24; Globulin 3.4 g/dL (2.4-3.5); Glucose 108 mg/dL (80-115); Potassium 4.1 mmol/L (3.5-5.1); Protein, Total 6.5 g/dL (5.8-8.1); Sodium 142 mmol/L (136-145)
[2024-01-12] MEDS: Lansoprazole 30 MG/10 ML UDCUP PER TUBE SCH (10:17)
[2024-01-12] MEDS: Amlodipine 10 MG TAB PER TUBE SCH (10:20)
[2024-01-12] MEDS: Lisinopril 10 MG TAB PO SCH (11:32)
[2024-01-12 12:44] LABS: #Basophils Less than 0.03 10x3/uL (0.0-0.2); %Basophils 0.3 % (0.0-1.0); %Eosinophils 3.8 % (0.0-10.0); %Lymphocytes 17.6 % (21.0-51.0); %Monocytes 9.5 % (0.0-10.0); %Neutrophils 68.6 % (42.0-75.0); Hematocrit 34.6 % (36.0-47.0); Mean Corpuscular HGB CONC 31.8 g/dL (32.0-36.0); Mean Corpuscular Hemoglobin 27.5 pg (27.0-31.0); Mean Corpuscular Volume 86.5 fL (78.0-98.0); Mean Platelet Volume 10.4 fL (7.4-10.4); Platelet Count 171 10x3/uL (130-400); RBC Distribution Width 13.1 % (11.5-14.5)
[2024-01-12 12:56] LABS: Lactic Acid 0.71 mmol/L (0.5-2.2)
[2024-01-12 13:00] LABS: ALT (SGPT) 8 U/L (8-55); AST (SGOT) 14 U/L (5-34); Alkaline Phosphatase 92 U/L (40-110); Anion Gap 11 mmol/L (10-20); BUN (Urea Nitrogen) 29 mg/dL (9.8-20.1); Bilirubin, Total 0.2 mg/dL (0.2-1.2); Calc. Creatinine Clearance 36 mL/min (70-130); Calcium 9.2 mg/dL (7.8-10.44); Carbon Dioxide 21 mmol/L (23-31); Chloride 114 mmol/L (98-107); Estimated GFR 26; Globulin 3.6 g/dL (2.4-3.5); Glucose 130 mg/dL (80-115); Potassium 3.9 mmol/L (3.5-5.1); Protein, Total 6.6 g/dL (5.8-8.1); Sodium 142 mmol/L (136-145)
[2024-01-12 13:04] LABS: Troponin I 0.037 ng/mL (< 0.028)
[2024-01-12] MEDS ORDERED: Polyethylene Glycol 3350 17 GM Packet PO PRN (14:45)
[2024-01-12 15:59] LABS: Troponin I 0.036 ng/mL (< 0.028)
[2024-01-12] MEDS: Acetaminophen 325 MG TAB PO SCH (17:42)
[2024-01-12 18:33] LABS: Bilirubin Negative (Negative); Blood, Urine 1+ (Negative); Clarity Turbid (Clear); Glucose, Urine (Dipstick) Normal (Negative); Ketone, Urine Negative (Negative); Leukocyte 75 Leu/uL (Negative); Nitrite Negative (Negative); Protein, Urine (Dipstick) 20 mg/dL (Neg-Trace); Specific Gravity, Urine 1.008 (1.002-1.036); Squamous Epithelial 0-3 HPF (0-3); Urobilinogen Normal mg/dL (Less than 2)
[2024-01-12 18:54] LABS: Bacteria/HPF 1+ HPF (None Seen)
[2024-01-12] MEDS: Atorvastatin Calcium 20 MG TAB PER TUBE SCH (22:04)
[2024-01-13 05:04] LABS: #Basophils 0.03 10x3/uL (0.0-0.2); %Basophils 0.6 % (0.0-1.0); %Eosinophils 5.8 % (0.0-10.0); %Lymphocytes 26.2 % (21.0-51.0); %Monocytes 10.3 % (0.0-10.0); %Neutrophils 56.9 % (42.0-75.0); Hematocrit 35.2 % (36.0-47.0); Hemoglobin 11.2 g/dL (12.0-16.0); Mean Corpuscular HGB CONC 31.8 g/dL (32.0-36.0); Mean Corpuscular Hemoglobin 27.5 pg (27.0-31.0); Mean Corpuscular Volume 86.3 fL (78.0-98.0); Mean Platelet Volume 10.4 fL (7.4-10.4); Platelet Count 171 10x3/uL (130-400); RBC Distribution Width 13.1 % (11.5-14.5); Red Blood Cell (RBC) Count 4.08 mill/uL (4.20-5.40)
[2024-01-13 05:31] LABS: ALT (SGPT) 6 U/L (8-55); AST (SGOT) 13 U/L (5-34); Alkaline Phosphatase 87 U/L (40-110); Anion Gap 12 mmol/L (10-20); BUN (Urea Nitrogen) 29 mg/dL (9.8-20.1); Bilirubin, Total 0.2 mg/dL (0.2-1.2); Calc. Creatinine Clearance 35 mL/min (70-130); Calcium 9.1 mg/dL (7.8-10.44); Carbon Dioxide 21 mmol/L (23-31); Chloride 115 mmol/L (98-107); Estimated GFR 26; Globulin 3.4 g/dL (2.4-3.5); Glucose 123 mg/dL (80-115); Potassium 3.9 mmol/L (3.5-5.1); Protein, Total 6.4 g/dL (5.8-8.1); Sodium 144 mmol/L (136-145)
[2024-01-13] MEDS ORDERED: Levothyroxine Sodium 25 MCG TAB PO SCH (09:00)
[2024-01-13] MEDS: Lactulose 20 GM (30 mL) UDCUP PER TUBE SCH (09:20)
[2024-01-13] MEDS: Lisinopril 10 MG TAB PER TUBE SCH (09:21)
[2024-01-13] MEDS: Lisinopril 10 MG TAB PO SCH (10:23)
[2024-01-14 05:03] LABS: #Basophils 0.03 10x3/uL (0.0-0.2); %Basophils 0.5 % (0.0-1.0); %Monocytes 12.2 % (0.0-10.0); Hematocrit 36.5 % (36.0-47.0); Hemoglobin 11.6 g/dL (12.0-16.0); Mean Corpuscular HGB CONC 31.8 g/dL (32.0-36.0); Mean Corpuscular Hemoglobin 26.9 pg (27.0-31.0); Mean Corpuscular Volume 84.7 fL (78.0-98.0); Mean Platelet Volume 10.9 fL (7.4-10.4); Platelet Count 179 10x3/uL (130-400); RBC Distribution Width 13.2 % (11.5-14.5); Red Blood Cell (RBC) Count 4.31 mill/uL (4.20-5.40)
[2024-01-14 05:35] LABS: ALT (SGPT) 7 U/L (8-55); AST (SGOT) 11 U/L (5-34); Alkaline Phosphatase 85 U/L (40-110); Anion Gap 13 mmol/L (10-20); BUN (Urea Nitrogen) 29 mg/dL (9.8-20.1); Bilirubin, Total 0.2 mg/dL (0.2-1.2); Calc. Creatinine Clearance 36 mL/min (70-130); Calcium 9.4 mg/dL (7.8-10.44); Carbon Dioxide 23 mmol/L (23-31); Chloride 113 mmol/L (98-107); Estimated GFR 26; Globulin 3.6 g/dL (2.4-3.5); Glucose 103 mg/dL (80-115); Potassium 4.1 mmol/L (3.5-5.1); Protein, Total 6.6 g/dL (5.8-8.1); Sodium 145 mmol/L (136-145)
[2024-01-14 07:05] LABS: Phosphorus 3.8 mg/dL (2.3-4.7)
[2024-01-14] MEDS: Lisinopril 20 MG TAB PO SCH (09:26)
[2024-01-14] MEDS: Scopolamine 1 mg/72 hour Patch TOP SCH (10:44)
[2024-01-14 12:00] VITALS: BP 138/73; TEMP 98
== END 2024-01-14 17:00 | DRG 64 ==
LOC: ERS 05:00 → ERHOLD 07:56 → 2SE 20:47
PROVIDERS: ADMIT Family Medicine; ATTEND Family Medicine
DX: I63.9 Cerebral infarction, unspecified (principal); G93.41 Metabolic encephalopathy; N18.4 Chronic kidney disease, stage 4 (severe); Z16.24 Resistance to multiple antibiotics; K21.9 Gastro-esophageal reflux disease without esophagitis; I48.91 Unspecified atrial fibrillation; E11.22 Type 2 diabetes mellitus with diabetic chronic kidney disease; E11.40 Type 2 diabetes mellitus with diabetic neuropathy, unspecified; I12.9 Hypertensive chronic kidney disease with stage 1 through stage 4 chronic kidney disease, or unspecified chronic kidney disease; J44.9 Chronic obstructive pulmonary disease, unspecified; F31.9 Bipolar disorder, unspecified; E03.9 Hypothyroidism, unspecified; E66.01 Morbid (severe) obesity due to excess calories; F03.90 Unspecified dementia, unspecified severity, without behavioral disturbance, psychotic disturbance, mood disturbance, and anxiety; Z66 Do not resuscitate; G40.909 Epilepsy, unspecified, not intractable, without status epilepticus; Z91.048 Other nonmedicinal substance allergy status; Z79.890 Hormone replacement therapy; Z79.899 Other long term (current) drug therapy; Z79.01 Long term (current) use of anticoagulants; Z88.1 Allergy status to other antibiotic agents; Z79.82 Long term (current) use of aspirin; Z86.73 Personal history of transient ischemic attack (TIA), and cerebral infarction without residual deficits; Z79.4 Long term (current) use of insulin; Z90.710 Acquired absence of both cervix and uterus; B96.1 Klebsiella pneumoniae [K. pneumoniae] as the cause of diseases classified elsewhere; Z68.31 Body mass index [BMI] 31.0-31.9, adult
CPT/HCPCS: 36415; 36416; 51701; 70450; 70551; 70553; 71045; 72125; 76376; 80053; 80061; 80306; 81001; 82140; 83605; 83735; 84100; 84484; 85025; 87040; 87077; 87086; 87149; 87186; 93005; 93010; 93306; 93880; J2185; J7030